=== PATIENT | female | born 1935 | race African-American/Black ===

== ENCOUNTER 2018-05-06 08:56 | Inpatient (IN) | payer OTHER ==
[~2018-05-06] VITALS: Ht 167.6 cm; Wt 79.8 kg
--- NOTE | ~2018-05-06 | H ---
[facility] [place] [address] HISTORY AND PHYSICAL Name: CINTHIA PATTON Room #: 205-P ADM IN M.R.#: [id number] Admission: 05/06/18 Attend Phys: Jaun Garcia MD Discharge: Date of : 31 Report #: [id number] THIS REPORT FOR: //name// CC: [facility] Gurinder Cao MD [facility] Jaun Alfredo MD DATE OF SERVICE: 05/06/2018 CHIEF COMPLAINT: Dizziness, weakness and nausea. HISTORY OF PRESENT ILLNESS: The patient is an 82-year-old -Gabonese female who is a resident at [facility], who began developing symptoms in the last 2 or 3 days prior to this admission. She did have an episode of emesis during the night, but denies any diarrhea or constipation issues otherwise. Her last good bowel movement was yesterday. She has not had any appetite in several days and because of concerns that she might be more seriously ill, the retirement arranged for transfer to the Hospital Emergency Room for further evaluation and treatment. While in the Emergency Room, she was found to have atrial fibrillation with rapid ventricular response. It was my understanding that this was a new finding that the patient had not had atrial fibrillation in the past, but in fact in reviewing her old records, she does have chronic atrial fibrillation. PAST MEDICAL HISTORY: Includes chronic atrial fibrillation, type 2 diabetes mellitus, hypertension, glaucoma, hyperlipidemia, gastroesophageal reflux disease, tremors, anemia and dementia. MEDICATIONS: As follows: Losartan, vitamins, amlodipine, tramadol, vitamin D3, donepezil, ranitidine, Lantus, lispro, MiraLax, metoprolol succinate, Linzess, Systane eye cleanser, primidone, latanoprost, aspirin, simvastatin. ALLERGIES: SHE HAS KNOWN ALLERGIES TO IODINE AND PENICILLIN. FAMILY HISTORY: Not available. SOCIAL HISTORY: She is a retirement resident. She has no vices at the moment. REVIEW OF SYSTEMS: She denies headache or vision changes. She denies shortness of breath. She states that she feels better now after receiving some intravenous fluids in the Emergency Room. Her dizziness is much better and she is not vomiting, but she has no appetite. She denies any diarrhea except for having some loose bowel movements [facility] [address] [place] [address] HISTORY AND PHYSICAL Name: CINTHIA PATTON Room #: 205-P [facility] IN M.R.#: [id number] Admission: 05/06/18 Attend Phys: Jaun Garcia MD Discharge: Date of : 33 Report #: [id number] gave her a laxative, feeling that might relieve some of her abdominal discomfort. The abdominal discomfort is coming and going, have no specific spot, although in the epigastric area generally. PHYSICAL EXAMINATION: VITAL SIGNS: In the Emergency Room on arrival showed the patient had a temperature of 36.6 degrees Celsius, respiratory rate of 22 with pulse oximetry of 100% on room air, pulse of 140 and blood pressure of 163/129. GENERAL: The patient is a pleasant older black female, in no distress. HEENT: Extraocular muscles are intact. Oropharynx is dry and pink. No lesions, no exudates. NECK: Supple. There is no adenopathy or thyromegaly or mass or bruit. CHEST: Lungs are fairly clear bilaterally. CARDIOVASCULAR: Reveals a tachycardic rate of around 125-130 beats per minute with slight irregularity noted. ABDOMEN: Soft. There is some mild epigastric tenderness without rebound or guarding and no other rebound or guarding or organomegaly is noted. EXTREMITIES: Reveal no cyanosis or clubbing or peripheral edema. Peripheral pulses are weak, but palpable in all 4 distal extremities. No heel wounds or ulcers on her feet. BACK: Her back looks completely benign and spine is nontender. NEUROLOGIC: She is unable to walk stable at baseline. She is able to make transfers. I believe the cause of her weakness is likely from osteoarthritis. LABORATORY DATA: EKG in the Emergency Room showed heart rate of 145 beats per minute, absence of P waves at time and other times it looks like atrial flutter. The labs show on chemistry, sodium of 145, potassium 4.1, chloride of 106, bicarbonate of 24, BUN of 29, creatinine 1.0, the anion gap is 15, the estimated GFR is 53 and the glucose was 255. Calcium was 9.5 with troponin level at 0.53, which is elevated. The hematology shows white blood cell count of 8500 with hemoglobin of 14.9, hematocrit of 47.0. The MCV is borderline low at 82.1 and the RDW is high at 15.4, suggesting active bone marrow. The platelet count is 298,000. Differential shows 79.5% segmented neutrophils, 13.5% lymphocytes, 6.7% monocytes, 0 eosinophils and 0.3% basophils. The absolute neutrophil count was 6800. Urinalysis was essentially normal with a urine specific gravity of 1.010 and trace positive on the leukocyte esterase. There was not a microscopic exam performed and glucose and protein were negative. The ER sent the urine for culture and that is pending. Chest x-ray shows bibasilar atelectasis without any other significant findings and a hiatal hernia mentioned for completeness. ASSESSMENT AND PLAN: 1. Atrial fibrillation with rapid ventricular response. The patient was started on a diltiazem drip in the ER. She is inadequately controlled at 15 per hour on my exam and I instructed the nurse to increase it to 20. I will continue intravenous fluids as I suspect she might be a little bit dehydrated, [facility] [address] [place] [address] HISTORY AND PHYSICAL Name: CINTHIA PATTON Room #: 205-P ADM IN M.R.#: [id number] Admission: 05/06/18 Attend Phys: Jaun Garcia MD Discharge: Date of : 33 Report #: [id number] although her urinalysis looked better than expected in that regard. 2. Elevated troponin is concerning and could represent myocardial infarction. We will obtain repeat troponin levels to see if this is increasing or not and we will obtain a Cardiology consult as well as an echocardiogram. She will get serial troponins and an EKG again in the morning. She is currently pain free. 3. Intractable nausea and vomiting. I suspect she has acute viral gastroenteritis and this will be self-limiting. She has not had hepatic functions yet, so I will test for these as well. Other considerations would include pancreatitis, gallbladder disease, hepatobiliary problems, etc. We will keep her on clear liquids for now and continue H2 receptor antagonist therapy. 4. Gastroesophageal reflux disease without esophagitis in the past. Continue medication as above. We will consider GI evaluation if symptoms do not resolve promptly. 5. Essential hypertension. Continue home medications except for amlodipine since we are switching to IV diltiazem. 6. Type 2 diabetes mellitus with peripheral neuropathy. We will put the patient on a sliding scale and try to continue her regularly scheduled medicines. 7. Essential tremors -- she had minimal evidence of any tremors during my exam today. We will continue same medications for now. 8. Osteoporosis. We will defer to Dr. Alfredo's recommendations. 9. Irritable bowel disease -- being treated with Linzess. 10. In reviewing the patient's medications, it appears that she was on digoxin in the past, but I am not sure if she is taking it now. I mentioned this for the sake of completeness in case the gathering worker wants to return her to that medication. <ELECTRONICALLY SIGNED> By: Jaun Garcia MD 05/06/18 1822 1653 1725 Jaun Garcia MD /nt
--- NOTE | ~2018-05-06 | EKG ---
[place] [address] [facility] [place] [address] ELECTROCARDIOGRAM REPORT Name: CINTHIA PATTON Room #: JUDD Velasco#: [id number] Admission: 05/06/18 Attend Phys: Discharge: Date of : 33 Report #: [id number] THIS REPORT FOR: //name// [facility] ED Test Date: 2018-05-06 Test Time: 09:08:44 Pat Name: CINTHIA PATTON Department: Room: Gender: F Finish Photographer: : 1935 Requested By: Enrique Cevallos Order Number: [id number] MD: Kirill Martínez Measurements Intervals [place] Rate: 145 P: 264 AK: 196 QRS: -33 QRSD: 70 T: 75 QT: 311 QTc: 483 Interpretive Statements Atrial flutter Left ventricular hypertrophy Inferior infarct, age indeterminate Poor R wave progression No previous ECG available for comparison Electronically Signed On 05-06-2018 9:51:23 INSURANCE LOSS ADJUSTER by Kirill Martínez [email or web address] <ELECTRONICALLY SIGNED> By: Kirill Martínez MD, [facility] 05/06/18 [phone] Kirill Martínez MD, FACC /EPI
--- NOTE | ~2018-05-06 | 2DMMODE ---
[facility] [address] [place] [address] 2 D/M-MODE ECHOCARDIOGRAM Name: CINTHIA PATTON Room #: 205-P ADM IN [facility]#: [id number] Admission: 05/06/18 Attend Phys: Jaun Garcia MD Discharge: Date of : 31 Date of Service: 05/07/18 1612 Report #: [id number] THIS REPORT FOR: //name// APPROVED REPORT Study performed: 05/07/2018 13:36:17 EXAM: Comprehensive 2D, Doppler, and color-flow Echocardiogram Patient Location: In-Patient Room #: 205 Status: routine BSA: 1.75 HR: 72 bpm BP: 158/78 mmHg Other Information Study Quality: Good Indications Atrial Fibrillation 2D Dimensions IVSd: 15.10 (7-11mm) LVOT Diam: 21.24 (18-24mm) LVDd: 40.42 mm PWd: 12.47 (7-11mm) LVDs: 24.22 (25-40mm) Left Atrium: 28.58 (27-40mm) Aortic Root: 31.07 mm IVC: 2.00 mm Volumes Left Atrial Volume (Systole) Single Plane 4CH: 59.97 mL Single Plane 2CH: 45.90 mL Aortic Valve AoV Peak Wilmer.: 1.22 m/s AO Peak Gr.: 5.93 mmHg LVOT Max P.00 mmHg AO Mean Gr.: 4.40 mmHg LVOT Mean P.54 mmHg AO V2 Mean: 1.04 m/s LVOT Max V: 0.99 m/s AO V2 VTI: 26.54 cm LVOT Mean V: 0.76 m/s CHRISSY (VTI): 2.77 cm2 LVOT V1 VTI: 20.77 cm CHRISSY Vmax: 2.88 cm2 AI Vmax: 2.09 m/s SV (LVOT): 73.56 mL AI [place]: 1.75 m/s2 AI PHT: 351.64 ms [facility] [place] [address] [place] [place] [address] 2 D/M-MODE ECHOCARDIOGRAM Name: CINTHIA PATTON Room #: 205-[facility] IN ..#: [id number] Admission: 05/06/18 Attend Phys: Jaun Garcia MD Discharge: Date of : 33 Date of Service: 05/07/18 1612 Report #: [id number] Mitral Valve E/A Ratio: 2.3 MV Decel. Time: 125.91 ms MV E Max Wilmer.: 0.90 m/s MV A Wilmer.: 0.40 m/s MV PHT: 36.51 ms IVRT: 103.81 ms Pulmonary Valve PV Peak Wilmer.: 0.90 m/s PV Peak Gr.: 3.23 mmHg Tricuspid Valve TR Peak Wilmer.: 2.55 m/s RAP Estimate: 3.00 mmHg TR Peak Gr.: 26.09 mmHg PA Pressure: 29.00 mmHg Left Ventricle The left ventricle is normal size. Moderate concentric left ventricular hypertrophy. The left ventricular systolic function is normal. The left ventricular ejection fraction is within the normal range. LVEF is 55-60%. Right Ventricle The right ventricle is normal size. There is normal right ventricular wall thickness. The right ventricular systolic function is normal. Atria Left atrium is at the upper limits of normal. Right atrium is at the upper limits of normal. Aortic Valve Aortic valve is thickened but has adequate excursion. Moderate aortic regurgitation. Calculated aortic valve area is 2.9 cm2 with maximum pressure gradient of 6 mmHg and mean pressure gradient of 5 mmHg. Mitral Valve Mitral valve leaflets are thickened. Trace mitral regurgitation. Tricuspid Valve The tricuspid valve is normal in structure. Trace tricuspid regurgitation. Pulmonic Valve [facility] [address] [place] [address] 2 D/M-MODE ECHOCARDIOGRAM Name: CINTHIA PATTON Room #: 205-P ADM IN .R.#: [id number] Admission: 05/06/18 Attend Phys: Jaun Garcia MD Discharge: Date of : 33 Date of Service: 05/07/18 1612 Report #: [id number] Pulmonic valve is not well visualized. Trace to mild pulmonic regurgitation. Great Vessels The aortic root is normal in size. IVC is normal in size and collapses >50% with inspiration. Pericardium Trace pericardial effusion. Small left pleural effusion. Critical Notification Critical Value: No <Conclusion> The left ventricle is normal size. LVEF is 55-60%. Left atrium is at the upper limits of normal. Right atrium is at the upper limits of normal. Aortic valve is thickened but has adequate excursion. Moderate aortic regurgitation. Calculated aortic valve area is 2.9 cm2 with maximum pressure gradient of 6 mmHg and mean pressure gradient of 5 mmHg. Mitral valve leaflets are thickened. Trace mitral regurgitation. The tricuspid valve is normal in structure. Trace tricuspid regurgitation. Pulmonic valve is not well visualized. Trace to mild pulmonic regurgitation. Trace pericardial effusion. Small left pleural effusion. <ELECTRONICALLY SIGNED> By: Krishna Cano MD 05/07/181611 11 11 Krishna Cano MD /INF
--- NOTE | ~2018-05-06 | EKG ---
[address] [address] ELECTROCARDIOGRAM REPORT Name: CINTHIA PATTON Room #: 205-P ADM IN M.R.#: [id number] Admission: 05/06/18 Attend Phys: Jaun Garcia MD Discharge: Date of : 33 Report #: [id number] THIS REPORT FOR: //name// [facility] Test Date: 2018-05-07 Test Time: 08:06:13 Pat Name: CINTHIA PATTON Department: Room: 205 P Gender: F Grades 9 12 Tutor: MIKAYLA : 1935 Requested By: Jaun Garcia Order Number: [id number] MD: Krishna Cano Measurements Intervals [place] Rate: 100 P: ND: QRS: -49 QRSD: 147 T: 117 QT: 387 QTc: 500 Interpretive Statements Atrial flutter LAD Inferior infarct age indeterminate Compared to ECG 05/06/2018 09:08:44 Early repolarization now present Electronically Signed On 05-08-2018 23:22:02 CASING WORKER by Krishna Cano [email or web address] <ELECTRONICALLY SIGNED> By: Krishna Cano MD 05/08/18 2322 0806 5 Krishna Cano MD /DAMASO
[2018-05-06 08:58] VITALS: BP 163/129
[2018-05-06 09:17] LABS: ABSOLUTE NEUTROPHILS 6.8 thou/uL (1.4-8.2); BASOPHILS 0.3 % (0.0-2.0); HEMOGLOBIN 14.9 gm/dL (12.0-15.0); LYMPHOCYTES 13.5 % (24.0-44.0); MCHC 31.7 g/dL (28.0-37.0); MCV 82.1 fL (80.0-100.0); MONOCYTES 6.7 % (1.0-8.0); PLATELET COUNT 298 thou/uL (150-400); POLYS 79.5 % (36.0-66.0); RBC 5.73 mil/uL (4.20-5.00); RDW 15.4 % (10.5-14.5); WBC 8.5 thou/uL (4.0-11.0)
[2018-05-06] MEDS ORDERED: COZAAR 25 MG TA25 M1 PO (09:18)
[2018-05-06] MEDS ORDERED: PRENATAL PO (09:18)
[2018-05-06] MEDS ORDERED: NORVASC10 MG PO (09:19)
[2018-05-06] MEDS ORDERED: VITAMIN D2000 UNIT PO (09:19)
[2018-05-06] MEDS ORDERED: TRAMADOL 50 MG50 MG PO (09:19)
[2018-05-06] MEDS ORDERED: ARICEPT 5 MG TAB5 MG PO (09:20)
[2018-05-06] MEDS ORDERED: LANTUS100 UNIT/M SUBQ (09:20)
[2018-05-06] MEDS ORDERED: RANITIDINE 150150 M1 PO (09:20)
[2018-05-06] MEDS ORDERED: HUMALOG100 UNIT/1 SUBQ (09:21)
[2018-05-06 09:22] LABS: URINE BILIRUBIN NEGATIVE (Negative); URINE BLOOD NEGATIVE (Negative); URINE CLARITY CLEAR; URINE COLOR YELLOW; URINE GLUCOSE-RANDOM* NEGATIVE (Negative); URINE KETONES NEGATIVE (Negative); URINE NITRITE-REFLEX NEGATIVE (Negative); URINE PROTEIN (DIPSTICK) NEGATIVE (Negative); URINE UROBILINOGEN 0.2 E.U./dl (0.2-1.0)
[2018-05-06] MEDS ORDERED: TOPROL XL25 MG PO (09:22)
[2018-05-06] MEDS ORDERED: MIRALAX17 GM PO (09:22)
[2018-05-06] MEDS ORDERED: LINZESS290 MCG PO (09:22)
[2018-05-06] MEDS ORDERED: SYSTANE1 EACH OPHTHALMIC (09:23)
[2018-05-06] MEDS ORDERED: MYSOLINE50 MG PO (09:23)
[2018-05-06 09:25] LABS: URINE LEUKOCYTES-REFLEX TRACE (Negative)
[2018-05-06 09:36] LABS: CALCIUM 9.5 mg/dL (8.5-10.1); TROPONIN-I 0.53 ng/mL (<0.06)
[2018-05-06 09:51] LABS: POTASSIUM 4.1 mmol/L (3.5-5.1)
[2018-05-06] MEDS ORDERED: FARXIGA5 MG PO (09:52)
[2018-05-06] MEDS ORDERED: ASPIR 8181 MG PO (09:52)
[2018-05-06] MEDS ORDERED: XALATAN2.5 ML OPHTHALMIC (09:52)
[2018-05-06] MEDS ORDERED: ZOCOR20 MG PO (09:52)
[2018-05-06 11:25] VITALS: BP 151/88
[2018-05-06 12:45] VITALS: BP 134/82
[2018-05-06 13:00] VITALS: BP 125/92
[2018-05-06 16:22] LABS: ALBUMIN 3.2 g/dL (3.4-5.0); DIRECT BILIRUBIN 0.1 mg/dL (<0.1-0.3); TOTAL BILIRUBIN 0.5 mg/dL (<0.1-1.0); TOTAL PROTEIN 6.9 g/dL (6.4-8.2)
[2018-05-06 16:24] VITALS: BP 148/72
[2018-05-06 19:40] VITALS: BP 153/87
[2018-05-07 00:10] VITALS: BP 147/72
[2018-05-07 04:43] VITALS: BP 154/61
[2018-05-07 04:51] LABS: HEMATOCRIT 45.6 % (37.0-47.0); HEMOGLOBIN 14.6 gm/dL (12.0-15.0); MCH 26.2 pg (26.0-34.0); MCV 81.7 fL (80.0-100.0); RBC 5.58 mil/uL (4.20-5.00); RDW 15.6 % (10.5-14.5)
[2018-05-07 05:13] LABS: ALBUMIN 2.6 g/dL (3.4-5.0); CALCIUM 8.6 mg/dL (8.5-10.1); CREATININE 0.8 mg/dL (0.6-1.0); POTASSIUM 3.7 mmol/L (3.5-5.1); TOTAL BILIRUBIN 0.8 mg/dL (<0.1-1.0); TOTAL PROTEIN 6.5 g/dL (6.4-8.2)
[2018-05-07 07:30] VITALS: BP 158/78
[2018-05-07 12:15] VITALS: BP 155/74
[2018-05-07 16:00] VITALS: BP 152/91
[2018-05-07 19:17] VITALS: BP 155/82
[2018-05-08 04:40] LABS: HEMATOCRIT 47.5 % (37.0-47.0); HEMOGLOBIN 15.5 gm/dL (12.0-15.0); MCH 26.9 pg (26.0-34.0); MCHC 32.6 g/dL (28.0-37.0); MCV 82.5 fL (80.0-100.0); RBC 5.76 mil/uL (4.20-5.00); RDW 15.2 % (10.5-14.5); WBC 7.3 thou/uL (4.0-11.0)
[2018-05-08 04:46] LABS: CALCIUM 8.7 mg/dL (8.5-10.1); CREATININE 0.8 mg/dL (0.6-1.0); POTASSIUM 3.2 mmol/L (3.5-5.1)
[2018-05-08 04:58] VITALS: BP 174/78
[2018-05-08 07:20] VITALS: BP 181/71
[2018-05-08 11:25] VITALS: BP 176/83
[2018-05-08 15:30] VITALS: BP 171/70
[2018-05-08 16:08] LABS: CALCIUM 8.8 mg/dL (8.5-10.1); CREATININE 0.9 mg/dL (0.6-1.0); POTASSIUM 3.5 mmol/L (3.5-5.1)
[2018-05-08 19:30] VITALS: BP 166/74
[2018-05-09 05:15] VITALS: BP 133/86
[2018-05-09 09:07] VITALS: BP 151/73
[2018-05-09 10:41] VITALS: BP 138/62
[2018-05-09] MEDS ORDERED: METOPROLOL SUCC50 MG PO (12:59)
[2018-05-09] MEDS ORDERED: ELIQUIS5 MG PO (12:59)
[2018-05-09] MEDS ORDERED: SPIRONOLACTONE25 M1 PO (13:00)
[2018-05-09] MEDS ORDERED: CARDIZEM CD240 MG PO (13:00)
[2018-05-09 15:23] VITALS: BP 121/61
[2018-05-09 19:54] VITALS: BP 158/80
[2018-05-10 05:04] VITALS: BP 172/75
[2018-05-10 07:40] VITALS: BP 148/69
[2018-05-10 11:35] VITALS: BP 135/51
[2018-05-10 15:45] VITALS: BP 136/76
[2018-05-10 19:26] VITALS: BP 142/84
[2018-05-11 04:49] VITALS: BP 148/72
[2018-05-11 07:32] VITALS: BP 137/66
[2018-05-11 11:37] VITALS: BP 132/70
[2018-05-11 14:20] VITALS: BP 145/58
[2018-05-11 19:54] VITALS: BP 147/52
[2018-05-12 03:45] VITALS: BP 169/72
[2018-05-12 11:23] VITALS: BP 145/75
[2018-05-12 15:05] VITALS: BP 135/65
[2018-05-12 19:30] VITALS: BP 133/62
[2018-05-13 05:33] VITALS: BP 164/68
[2018-05-13 08:00] VITALS: BP 180/85
[2018-05-13 12:00] VITALS: BP 136/71
[2018-05-13] MEDS ORDERED: METOPROLOL SUCC25 M1 PO (12:10)
[2018-05-13] MEDS ORDERED: CARDIZEM CD120 MG PO (12:10)
== END 2018-05-13 16:10 | DRG 392 ==
LOC: ER 08:56 → 2N 11:08 → EROBS 11:08 → 2N 12:53
PROVIDERS: Emergency Medicine; Internal Medicine
DX: K52.9 Noninfective gastroenteritis and colitis, unspecified (principal); I48.92 Unspecified atrial flutter; E44.1 Mild protein-calorie malnutrition; I48.0 Paroxysmal atrial fibrillation; I10 Essential (primary) hypertension; E11.9 Type 2 diabetes mellitus without complications; F03.90 Unspecified dementia, unspecified severity, without behavioral disturbance, psychotic disturbance, mood disturbance, and anxiety; H40.9 Unspecified glaucoma; E78.5 Hyperlipidemia, unspecified; K21.9 Gastro-esophageal reflux disease without esophagitis; E11.42 Type 2 diabetes mellitus with diabetic polyneuropathy; G25.0 Essential tremor; M81.0 Age-related osteoporosis without current pathological fracture; E87.6 Hypokalemia; Z88.0 Allergy status to penicillin; Z91.041 Radiographic dye allergy status
CPT/HCPCS: 10081

== ENCOUNTER 2018-08-05 13:02 | Inpatient (IN) | payer OTHER ==
[~2018-08-05] VITALS: Ht 167.6 cm; Wt 71.1 kg
[~2018-08-05 13:02] MED LIST: ARICEPT 5 MG TAB5 MG PO; ASPIR 8181 MG PO; CARDIZEM CD120 MG PO; CARDIZEM CD240 MG PO; COZAAR 25 MG TA25 M1 PO; ELIQUIS5 MG PO; FARXIGA5 MG PO; HUMALOG100 UNIT/1 SUBQ; LANTUS100 UNIT/M SUBQ; LINZESS290 MCG PO; METOPROLOL SUCC25 M1 PO; METOPROLOL SUCC50 MG PO; MIRALAX17 GM PO; MYSOLINE50 MG PO; NORVASC10 MG PO; PRENATAL PO; RANITIDINE 150150 M1 PO; SPIRONOLACTONE25 M1 PO; SYSTANE1 EACH OPHTHALMIC; TOPROL XL25 MG PO; TRAMADOL 50 MG50 MG PO; VITAMIN D2000 UNIT PO; XALATAN2.5 ML OPHTHALMIC; ZOCOR20 MG PO
[2018-08-05 13:03] VITALS: BP 145/70
--- NOTE | 2018-08-05 13:21 | NUR ---
PT HAD TO USE THE BATHROOM AFTER ARRIVAL. PT AMBULATED TO BATHROOM GRABBING HOLD OF FURNITURE. GAIT WAS WEAK, YET STEADY. URINE SPECIMEN OBTAINED AND SENT TO LAB. PT NOW BACK IN BED AND PLACED BACK ON GIS COORDINATOR. PT STATES THAT GETTING UP AND WALKING IS MAKING THE SOA WORSE.
[2018-08-05 13:49] LABS: ABSOLUTE NEUTROPHILS 4.9 thou/uL (1.4-8.2); BASOPHILS 0.8 % (0.0-2.0); HEMATOCRIT 43.9 % (37.0-47.0); HEMOGLOBIN 14.2 gm/dL (12.0-15.0); LYMPHOCYTES 23.2 % (24.0-44.0); MCH 26.9 pg (26.0-34.0); MCHC 32.5 g/dL (28.0-37.0); MCV 82.8 fL (80.0-100.0); MONOCYTES 10.7 % (1.0-8.0); PLATELET COUNT 253 thou/uL (150-400); POLYS 63.3 % (36.0-66.0); RDW 15.8 % (10.5-14.5); WBC 7.7 thou/uL (4.0-11.0)
--- NOTE | 2018-08-05 13:52 | EKG ---
[address] [place] [address] ELECTROCARDIOGRAM REPORT Name: CINTHIA PATTON Room #: [facility] M.R.#: [id number] ������������������ Admission: ������������������ Attend Phys: Discharge: ������������������ Date of : 31 Report #: [id number] ����������������������������������������������������������������� [id number] THIS REPORT FOR: //name// [facility] ED Test Date: 2018-08-05 Test Time: 13:27:36 Pat Name: CINTHIA PATTON Department: Room: Gender: F Trade Sales Assistant: NORA : 1935 Requested By: Capri López Order Number: [id number] MD: Krishna Cano Measurements Intervals [place] Rate: 105 P: [place]: QRS: -30 QRSD: 82 T: 17 QT: 397 QTc: 525 Interpretive Statements Atrial flutter Left axis deviation Nonspecific ST-T wave changes Compared to ECG 05/07/2018 08:06:13 no significant changes Electronically Signed On 08-05-2018 13:52:22 TENONER OPERATOR by Krishna Cano [email or web address] ��������������������������������������������� <ELECTRONICALLY SIGNED> ���������������������������������������� By: Krishna Cano MD ��������������������������������������������� 08/05/18 1352 1327 1327 Krishna Cano MD /DAMASO
[2018-08-05 14:03] LABS: APTT 32.7 Seconds (24.5-32.8); CALCIUM 9.1 mg/dL (8.5-10.1); CREATININE 1.1 mg/dL (0.6-1.0); INR 1.2; POTASSIUM 4.2 mmol/L (3.5-5.1); PROTIME 12.7 Seconds (9.3-11.4)
[2018-08-05 14:08] LABS: MAGNESIUM 1.8 mg/dL (1.8-2.4); TOTAL BILIRUBIN 0.6 mg/dL (<0.1-1.0); TOTAL PROTEIN 6.9 g/dL (6.4-8.2); TROPONIN-I 0.58 ng/mL (<0.06)
[2018-08-05 15:12] VITALS: BP 145/70
[2018-08-05 16:16] VITALS: BP 148/97
--- NOTE | 2018-08-05 16:26 | 2DMMODE ---
[facility] [address] [place] [address] 2 D/M-MODE ECHOCARDIOGRAM Name: CINTHIA PATTON Room #: 170-12 ADM IN ..#: [id number] ������������� Admission: 08/05/18 ������������� Attend Phys: Connor Gaines MD Discharge: ��� ������������� ��� Date of : 31 Date of Service: 08/05/18 1625 �� Report #: [id number] �������� ��������������������������������������������[id number] THIS REPORT FOR: //name// APPROVED REPORT Study performed: 08/05/2018 15:20:06 EXAM: Comprehensive 2D, Doppler, and color-flow Echocardiogram Patient Location: ER Room #: 12 Status: routine BSA: 1.76 HR: 90 bpm BP: 131/89 mmHg Rhythm: Atrial Flutter/Atrial Fibrillation Other Information Study Quality: Adequate Risk Factors: Cardiac Risk Factors: HTN, Hyperlipidemia, DM Indications Congestive Heart Failure Atrial Fibrillation Dyspnea Elevated Troponin 2D Dimensions IVSd: 14.71 (7-11mm) LVOT Diam: 20.00 (18-24mm) LVDd: 35.70 mm PWd: 15.37 (7-11mm) Ascending Ao: 36.54 (22-36mm) LVDs: 31.23 (25-40mm) Aortic Root: 32.49 mm LV Single Plane 4CH: 46.11 % LV Single Plane 2CH: 50.70 % Biplane EF: 47.8 % Volumes Left Atrial Volume (Systole) Single Plane 4CH: 54.45 mL Single Plane 2CH: 60.46 mL LA ESV Index: 46.00 mL/m2 Aortic Valve [facility] [address] [place] [address] 2 D/M-MODE ECHOCARDIOGRAM Name: CINTHIA PATTON Room #: 170-12 ADM IN M.R.#: [id number] ������������� Admission: 08/05/18 ������������� Attend Phys: Connor Gaines MD Discharge: ��� ������������� ��� Date of : 31 Date of Service: 08/05/18 1625 �� Report #: [id number] �������� ��������������������������������������������[id number] AoV Peak Wilmer.: 1.18 m/s AO Peak Gr.: 7.34 mmHg LVOT Max P.72 mmHg LVOT Max V: 0.66 m/s CHRISSY Vmax: 1.64 cm2 AI Vmax: 4.25 m/s AI [place]: 2.17 m/s2 AI PHT: 578.93 ms Pulmonary Valve PV Peak Wilmer.: 0.73 m/s PV Peak Gr.: 2.12 mmHg MT End Vmax: 1.92 m/s Tricuspid Valve TR Peak Wilmer.: 2.67 m/s RAP Estimate: 7.00 mmHg TR Peak Gr.: 28.51 mmHg PA Pressure: 36.00 mmHg Left Ventricle The left ventricle is normal size. There is normal LV segmental wall motion. Moderate concentric left ventricular hypertrophy. Left ventricular systolic function is mildly decreased. LVEF is 45%. This study is not technically sufficient to allow evaluation of the LV diastolic function due to atrial fibrillation. Right Ventricle The right ventricle is normal size. The right ventricular systolic function is normal. Atria Left atrium is moderately dilated. Right atrium is dilated. Aortic Valve The aortic leaflets are thickened Moderate aortic regurgitation. There is no aortic valvular stenosis. Mitral Valve There is mitral annular calcification. Moderate mitral regurgitation. No evidence of mitral valve stenosis. Tricuspid Valve The tricuspid valve is normal in structure. Trace tricuspid regurgitation. Pulmonary artery pressure is 35 mmHg. Pulmonic Valve The pulmonary valve is normal in structure. Moderate pulmonic regurgitation. [facility] [address] [place] [address] 2 D/M-MODE ECHOCARDIOGRAM Name: CINTHIA PATTON Room #: 170-12 ADM IN M.R.#: [id number] ������������� Admission: 08/05/18 ������������� Attend Phys: Connor Gaines MD Discharge: ��� ������������� ��� Date of : 31 Date of Service: 08/05/18 1625 �� Report #: [id number] �������� ��������������������������������������������[id number] Great Vessels The aortic root is normal in size. IVC is normal in size and collapses >50% with inspiration. Pericardium There is no pericardial effusion. <Conclusion> Left ventricular systolic function is mildly decreased. LVEF is 45-50%. Both atria are moderately dilated. The aortic leaflets are thickened Moderate aortic regurgitation, no stenosis There is mitral annular calcification. Moderate mitral regurgitation. Trace tricuspid regurgitation. Pulmonary artery pressure of 35 mmHg. There is no pericardial effusion. ��������������������������������������������� <ELECTRONICALLY SIGNED> ���������������������������������������� By: Kirill Martínez MD, FACC ��������������������������������������������� 08/05/18 1625 162 162 Kirill Martínez MD, FACC /INF
[2018-08-05 16:57] VITALS: BP 192/73
--- NOTE | 2018-08-05 18:45 | NUR ---
PT RECEIVED FROM THE ER AT 1650 TO RM 206 FOR CHF,SOA W/ SOME NOTED LABORED BREATHING. VS STABLE. O2 SAT 97% BUT 1L O2 APPLIED FOR PT COMFORT. SHE RECIEVED IV LASIX IN ER AND IS DIURESING WELL. TRACE PEDAL EDEMA. CHRONIC AFIB W/ RATE FLUCTUATING BUT INCREASING SOME WHEN UP. NO CHEST PAIN.
[2018-08-05 19:56] VITALS: BP 186/109
[2018-08-05 20:27] VITALS: BP 138/68
--- NOTE | 2018-08-06 04:01 | NUR ---
Carlos notified at the begnning of the shift that pt had a heart rate of 130's to 160's. Ordered to start Cardizem. Pt had inadvertantly pulled out her IV and it took several hours and >6 attempts to get a replacement in. by then her heart rate was in the 120's and I became of the opinion that her >140 heart rate was due to getting up to the commode. Cardizem gtt started at 5 mg/hr with no bolus given. SBP maintained >110.
[2018-08-06 04:07] VITALS: BP 174/114
[2018-08-06 06:00] LABS: POTASSIUM 3.8 mmol/L (3.5-5.1)
[2018-08-06 07:15] VITALS: BP 149/93
[2018-08-06 07:50] VITALS: BP 159/84
[2018-08-06 11:03] VITALS: BP 146/111
--- NOTE | 2018-08-06 12:52 | EKG ---
[place] [address] [employer] [employer] [facility] [place] [address] ELECTROCARDIOGRAM REPORT Name: CINTHIA PATTON Room #: 206-P ADM IN M.R.#: [id number] ������������������ Admission: 08/05/18 ������������������ Attend Phys: Jose Alberto Alfredo MD Discharge: ������������������ Date of : 31 Report #: [id number] ����������������������������������������������������������������� [id number] THIS REPORT FOR: //name// [facility] Test Date: 2018-08-06 Test Time: 07:25:02 Pat Name: CINTHIA PATTON Department: Room: 206 P Gender: F Auto Wash Buffer: : 1935 Requested By: Kirill Martínez Order Number: [id number] MD: Kirill Martínez Measurements Intervals [place] Rate: 92 P: NE: QRS: -38 QRSD: 82 T: 3 QT: 389 QTc: 482 Interpretive Statements Atrial flutter with variable AV conduction Probable left ventricular hypertrophy Possible inferior infarct, old Compared to ECG 08/05/2018 13:27:36 Heart rate has slowed Electronically Signed On 08-06-2018 12:51:59 OPERATIONS OFFICER AFLOAT by Kirill Martínez [email or web address] ��������������������������������������������� <ELECTRONICALLY SIGNED> ���������������������������������������� By: Kirill Martínez MD, [facility] ��������������������������������������������� 08/06/18 1251 4 Kirill Martínez MD, [facility] /EPI
[2018-08-06 15:35] VITALS: BP 145/89
[2018-08-06 19:49] VITALS: BP 150/81
[2018-08-07 00:39] VITALS: BP 137/69
--- NOTE | 2018-08-07 04:43 | NUR ---
PT REMAINS AFLUTTER ON TELE HR MOSTLY 60' TO 80'S. BP WELL CONTROLLED.PO CARDIZEM GIVEN LAST NIGHT, CARDIZEM GTT TURNED OFF AT 2200. PT RESTFUL THROUGHOUT THE NIGHT NO EVENTS, NO S/S DISTRESS.
[2018-08-07 05:55] LABS: CALCIUM 9.4 mg/dL (8.5-10.1); POTASSIUM 4.1 mmol/L (3.5-5.1)
[2018-08-07 06:05] VITALS: BP 135/65
[2018-08-07 08:06] VITALS: BP 139/92
[2018-08-07 13:22] VITALS: BP 129/68
[2018-08-07 15:55] VITALS: BP 141/49
[2018-08-07 19:51] VITALS: BP 148/58
[2018-08-08 05:46] VITALS: BP 150/63
[2018-08-08 07:20] VITALS: BP 142/84
--- NOTE | 2018-08-08 07:52 | NUR ---
PT RESTING QUIETLY IN ROOM THRU THE NOC, NO C/O PAIN, VSS, ASSESSMENT as charted, WILL CON'T TO MONITOR PER PPOC.
[2018-08-08 11:20] LABS: HEMATOCRIT 44.4 % (37.0-47.0); HEMOGLOBIN 14.5 gm/dL (12.0-15.0); MCH 27.1 pg (26.0-34.0); MCHC 32.8 g/dL (28.0-37.0); MCV 82.6 fL (80.0-100.0); RBC 5.37 mil/uL (4.20-5.00); RDW 15.8 % (10.5-14.5); WBC 6.6 thou/uL (4.0-11.0)
[2018-08-08 11:31] VITALS: BP 109/66
[2018-08-08 11:35] LABS: CREATININE 1.2 mg/dL (0.6-1.0); MAGNESIUM 1.7 mg/dL (1.8-2.4); POTASSIUM 4.9 mmol/L (3.5-5.1)
--- NOTE | 2018-08-08 14:55 | NUR ---
Met with patient she is ltc resident of [place]. Sp with admissions at [facility] station captain patient independent with adls. She use a walker for ambulation. She does not have any foot dragging but her legs can become weak and she appaears she is going to fall. On sundays she has more assistance with adls and she dresses up for rastafari, per [facility] [place]. Sp [facility] emergency contact Mr García reviewed role of casemgt and plan return once stable.
--- NOTE | 2018-08-08 15:08 | NUR ---
FAXED CLINICAL UPDATE TO CM SPOKE WITH DAX IN ADM. SHE RECEIVED UPDATE. DCP TO FOLLOW.
[2018-08-08 15:22] VITALS: BP 120/59
--- NOTE | 2018-08-08 17:56 | NUR ---
ASSESSMENT DOCUMENTED. PT ALERT AND ORIENTED. DENIED HAVING PAIN OR DISCOMFORT. INCONTINENT OF B/B. SEEN BY DR. JEAN. ORDERS NOTED. WILL CONTINUE TO MONITOR.
[2018-08-08 21:08] VITALS: BP 132/75
[2018-08-09 03:49] VITALS: BP 108/72
--- NOTE | 2018-08-09 05:49 | NUR ---
ASSUMED PT CARE AT 1900 WITH NO SIGN OF DISTRESS NOTED IN PT. PT IS ALERT AND ORIENTED. PT IS STABLE. PT IS IN AFLUTTER AND CONTROL ASSESSMENT DOCUMENTED. SCHEDULED MED ADMINISTERD TO PT. DENIES ANY FURTHER NEEDS AT THIS TIME.
[2018-08-09 07:41] VITALS: BP 115/74
[2018-08-09 11:24] VITALS: BP 126/73
--- NOTE | 2018-08-09 13:54 | NUR ---
spoke with Dr Alfredo still with increase heart rate not ready for dc to [facility]. Therapy recommmedation of post acute care. Dr Alfredo in agreement for skilled requested [facility] submit for auth for skilled care upon dc
[2018-08-09 14:19] VITALS: BP 133/61
--- NOTE | 2018-08-09 17:46 | NUR ---
ASSESSMENT DOCUMENTED. PT ALERT AND ORIENTED. DENIED HAVING PAIN OR DISCOMFORT. HAD ELEVATED HR THIS AM CARDIOLOGY AND DR JEAN AWARE. ORDERS NOTED. SON UPDATED ON PT'S PLAN OF CARE AND PROGRESS. WILL CONTINUE TO MONITOR.
[2018-08-09 20:42] VITALS: BP 133/69
[2018-08-10] MEDS ORDERED: LOPRESSOR50 PO (01:01)
[2018-08-10] MEDS ORDERED: CARDIZEM CD240 MG PO (01:02)
[2018-08-10] MEDS ORDERED: COZAAR 50 MG TA50 M1 PO (01:03)
[2018-08-10] MEDS ORDERED: LASIX 20 MG TAB20 MG PO (01:04)
--- NOTE | 2018-08-10 03:08 | NUR ---
ASSUMED PT CARE AT 1900. PT RESTING IN ROOM. A/OX4, OCAASIONALLY FORGETFUL, VITAL SIGNS STABLE, ASSESSMENT CHARTED. FALL PRECAUTIONS MAINTAINED, BED ARMED. PT ENCOURAGED TO CALL BEFORE GETTING OUT OF BED. NO CHEST PAIN/PAIN COMPLAINTS. RESTED WELL THROUGH THE NIGHT. PTOGRESSING TOWARD PLAN OF CARE. WILL CONTINUE TO MONITOR.
[2018-08-10 04:16] VITALS: BP 133/59
[2018-08-10 09:37] VITALS: BP 127/88
--- NOTE | 2018-08-10 10:45 | NUR ---
Patient is not medically stable to dc today. Updated Ofelia Triana.
[2018-08-10 11:05] VITALS: BP 109/69
[2018-08-10 14:55] VITALS: BP 135/70
--- NOTE | 2018-08-10 17:00 | NUR ---
ASSESSMENT DOCUMENTED. PT ALERT AND ORIENTED. DENIED HAVING PAIN OR DISCOMFORT. SEEN BY DR. JEAN. NO NEW ORDERS. CHECKED FREQUENTLY AND NEEDS MET. WILL CONTINUE TO MONITOR.
[2018-08-10 19:10] VITALS: BP 123/78
[2018-08-11 04:07] VITALS: BP 132/61
[2018-08-11 04:31] LABS: HEMOGLOBIN 15.5 gm/dL (12.0-15.0); MCH 26.1 pg (26.0-34.0); MCHC 31.1 g/dL (28.0-37.0); RBC 5.95 mil/uL (4.20-5.00); RDW 16.4 % (10.5-14.5); WBC 6.6 thou/uL (4.0-11.0)
[2018-08-11 04:33] VITALS: BP 106/57
--- NOTE | 2018-08-11 04:35 | NUR ---
ASSUMED PT CARE AT 1900 WITH NO SIGN OF DISTRESS NOTED IN PT. PT IS ALERT AND ORIENTED. PT IS LAYING IN BED. PT IS STABLE ON THE HEART MONITOR WITH AFIB CONTROLLED. SCHEDULED MEDS ADMINISTERED TO PT. PT TOLERATED PO INTAKE. ASSESSMENT CHARTED. NURSING POC TO CONTINUE. DENIES ANY FURTHER NEEDS AT THIS TIME.
[2018-08-11 04:43] LABS: CALCIUM 9.3 mg/dL (8.5-10.1); CREATININE 1.1 mg/dL (0.6-1.0); MAGNESIUM 2.1 mg/dL (1.8-2.4); POTASSIUM 4.9 mmol/L (3.5-5.1)
[2018-08-11 07:50] VITALS: BP 129/85
[2018-08-11 12:10] VITALS: BP 137/97
[2018-08-11 17:05] VITALS: BP 120/92
--- NOTE | 2018-08-11 18:36 | NUR ---
ASSUMED CARE OF PATIENT AT 0700. ASSESSMENTS CHARTED. PATIENT'S SON WAS AT THE BEDSIDE FOR THE ENTIRETY OF THE MORNING. PATIENT'S HEART RATE REMAINED BELOW 120 TODAY AND IN AFIB. SHE IS A STAND BY ASSIST HOWEVER SHE IS IMPULSIVE AND AMBULTATES TO THE BS PRIOR TO CALLING OUT. HER BLOOD SUGAR WAS MONITORED AND COVERED WITH INSULIN. PATIENT IS HOPING TO RETURN TO [facility] TOMORROW. WILL CONTINUE TO FOLLOW WITH POC.
[2018-08-11 19:41] VITALS: BP 133/77
--- NOTE | 2018-08-12 00:40 | NUR ---
AOX4. AFIB RATE CONTROLLED ON THE MONITOR. 1+ EDEMA ON BILATERAL LOWER EXTREMITIES. DENIES PAIN, DENIES SOA. LUNG SOUNDS CLEAR AND DIMINISHED ON THE BASES. (+)BS. MAINTAINED ON FALL PRECAUTION. URINATE TO BEDSIDE COMMODE WITH STANDBY ASSIST. IV ON THE RIGHT FOREARM INTACT AND FLUSHES WELL. PATIENT REFUSED SCD. FF UP POC.
[2018-08-12 06:25] VITALS: BP 142/63
[2018-08-12 07:40] VITALS: BP 120/95
[2018-08-12 11:20] VITALS: BP 93/56
--- NOTE | 2018-08-12 14:13 | NUR ---
Admitted for elevated heart rate, dyspnea. Seen for LOS. Hx of CHF, DM, dementia. BG 103-359, on carb controlled diet. Meds include vitamin D, vitamin, spironolactone, furosemide, low dose ss insulin. Reports pretty good appetite, nsg reports 40-50% po intake. Wt ranging 151-163. Current wt 159, UBW 152. Based on CHF and fluid retention, will add heart healthy diet restriction. Otherwise low nutritional risk.
[2018-08-12 15:30] VITALS: BP 113/65
--- NOTE | 2018-08-12 17:32 | NUR ---
Med adjustments continue for elev heart rate. [facility] has pending auth for the weekend if she is medically stable for dc back to SNF. Weekend staff to call the services account manager on duty Betsy Rios to confirm and give report. Orders will need to be faxed to [phone] and w/c van arranged through [facility] [phone] billable to the SNF. Dtr will need to be called to confirm the dc orders and time. Chart copy needs to be sent with the pt.
--- NOTE | 2018-08-12 18:09 | NUR ---
ASSUMED CARE AT SHIFT CHANGE, PT A/O X4, FLAT AFFECT, FORGETFUL AT TIMES. ASSESSMENTS PER CHART. HAD BM THIS MORNING AFTER GETTING STOOL SOFTENER ALTHOUGH FAMILY STATES PT WILL HAVE DIARRHEA IF SHE GET A STOOL SOFTENER, PT IS AGREEABLE TO TAKE IT THOUGH. PT WITH URINARY FREQUENCY TODAY AND GOT UP TO BSC WITHOUT ASSISTANCE SEVERAL TIMES. PT INSTRUCTED TO CALL IF SHE NEEDS TO GET UP TO GO. FALL PRECAUTIONS IN PLACE. LABS NOTED. HR DECREASED AFTER AM MEDS AND ADDITIONAL DOSE OF MEDS PER ORDER. PROGRESSING TOWARDS POC GOALS. WILL CONT TO MONITOR AND FOLLOW POC.
[2018-08-12 19:30] VITALS: BP 127/63
[2018-08-13 04:24] VITALS: BP 123/71
[2018-08-13 04:39] LABS: HEMATOCRIT 51.7 % (37.0-47.0); HEMOGLOBIN 16.4 gm/dL (12.0-15.0); MCH 26.4 pg (26.0-34.0); MCHC 31.7 g/dL (28.0-37.0); MCV 83.3 fL (80.0-100.0); RBC 6.2 mil/uL (4.20-5.00); RDW 15.7 % (10.5-14.5)
--- NOTE | 2018-08-13 04:48 | NUR ---
AOX4, DENIES PAIN, FLUTTER ON THE MONITOR, PULSES 2+/2+. BILATERAL LOWER EXTREMITY EDEMA 1+. MAINTAINED ON FALL PRECAUTION. ON STANDBY ASSIST X1 TO BEDSIDE COMMODE. FF UP POC.
[2018-08-13 04:56] LABS: CALCIUM 9.4 mg/dL (8.5-10.1); CREATININE 1.2 mg/dL (0.6-1.0); POTASSIUM 4.9 mmol/L (3.5-5.1)
[2018-08-13 07:50] VITALS: BP 121/74
[2018-08-13 11:50] VITALS: BP 109/54
[2018-08-13] MEDS ORDERED: ARICEPT 5 MG TAB5 MG PO (12:49)
[2018-08-13] MEDS ORDERED: CARDIZEM CD240 MG PO (12:49)
[2018-08-13] MEDS ORDERED: ZOCOR20 MG PO (12:49)
[2018-08-13] MEDS ORDERED: ELIQUIS5 MG PO (12:49)
== END 2018-08-13 16:38 | DRG 280 ==
LOC: ER 13:02 → 2N 14:29 → EROBS 14:29 → 2N 16:20
PROVIDERS: Internal Medicine; Physician Assistant; ADMIT Internal Medicine
DX: I21.A1 Myocardial infarction type 2 (principal); I50.33 Acute on chronic diastolic (congestive) heart failure; J98.11 Atelectasis; I48.92 Unspecified atrial flutter; E11.9 Type 2 diabetes mellitus without complications; I11.0 Hypertensive heart disease with heart failure; I48.0 Paroxysmal atrial fibrillation; F03.90 Unspecified dementia, unspecified severity, without behavioral disturbance, psychotic disturbance, mood disturbance, and anxiety; E78.5 Hyperlipidemia, unspecified; K21.9 Gastro-esophageal reflux disease without esophagitis; H40.9 Unspecified glaucoma; Z79.01 Long term (current) use of anticoagulants; Z79.4 Long term (current) use of insulin; Z79.82 Long term (current) use of aspirin; Z79.899 Other long term (current) drug therapy; Z88.0 Allergy status to penicillin; Z91.041 Radiographic dye allergy status; Z82.49 Family history of ischemic heart disease and other diseases of the circulatory system; Z83.3 Family history of diabetes mellitus; Z82.3 Family history of stroke; Z80.0 Family history of malignant neoplasm of digestive organs
CPT/HCPCS: 10081; 10194

== ENCOUNTER 2018-10-31 00:17 | Inpatient (IN) | payer OTHER ==
[2018-10-31] VITALS (7 sets, daily range): BP systolic 130–155; BP diastolic 83–129
[~2018-10-31] VITALS: Ht 167.6 cm; Wt 70.1 kg
[~2018-10-31 00:17] MED LIST changes: +COZAAR 50 MG TA50 M1 PO; +LASIX 20 MG TAB20 MG PO; +LOPRESSOR50 PO
[2018-10-31 01:06] LABS: ABSOLUTE NEUTROPHILS 4.6 thou/uL (1.4-8.2); BASOPHILS 0.6 % (0.0-2.0); EOSINOPHILS 1.3 % (0.0-3.0); HEMOGLOBIN 13.4 gm/dL (12.0-15.0); LYMPHOCYTES 29.1 % (24.0-44.0); MCH 26.6 pg (26.0-34.0); MCHC 31.8 g/dL (28.0-37.0); MCV 83.5 fL (80.0-100.0); MONOCYTES 8.6 % (1.0-8.0); PLATELET COUNT 255 thou/uL (150-400); POLYS 60.4 % (36.0-66.0); RBC 5.03 mil/uL (4.20-5.00); RDW 16.2 % (10.5-14.5); WBC 7.5 thou/uL (4.0-11.0)
[2018-10-31 01:16] LABS: CALCIUM 8.7 mg/dL (8.5-10.1); CREATININE 1.3 mg/dL (0.6-1.0); POTASSIUM 5.1 mmol/L (3.5-5.1)
[2018-10-31 01:21] LABS: APTT 27.2 Seconds (24.5-32.8); INR 1.2; PROTIME 12.8 Seconds (9.3-11.4)
[2018-10-31 01:26] LABS: ALBUMIN 2.9 g/dL (3.4-5.0); TOTAL BILIRUBIN 0.6 mg/dL (<0.1-1.0); TOTAL PROTEIN 6.6 g/dL (6.4-8.2); TROPONIN-I 0.46 ng/mL (<0.06)
[2018-10-31] MEDS ORDERED: SIMVASTATIN10 MG PO (02:28)
[2018-10-31] MEDS ORDERED: ZANTAC 150MG T150 MG PO (02:29)
[2018-10-31] MEDS ORDERED: HUMALOG100 UNIT/1 SUBQ (02:32)
[2018-10-31] MEDS ORDERED: LANTUS SUBQ (02:32)
--- NOTE | 2018-10-31 07:50 | NUR ---
ASSUME CARE 0345. PTSTABLE. DENIES ANY PAIN AT THIS TIME. UP TO BATHROOM WITH WALKER X 1 ASSIST. ASSESSMENT CHARTED. PROGRESSING WELL WITH POC. EDUCATION DONE ON TELE MONITOR. PT EDUCATED ON THE NEED TO FREQUENTLY CHECK ON THEM AND THE MONITOR IF THERE IS ANY ISSUE AT THE MONITOR AT THE NIRSES'S STATION. EDUCATED ON THE FAT THAT IT IS FOR PT SAFETY AND HAD PT SIGN AND VERBALIZE UNDERSTANDING. SIGNED COPY IN CHART. NPO FOR CARDIOLOGY TO SEE HER THIS AM. WILL CONTINUE TO MONITOR AND FOLLOW WITH POC
--- NOTE | 2018-10-31 08:25 | EKG ---
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 : 1935 Requested By: Ferny Krishna Order Number: [id number] MD: Mahamed Benitez Measurements Intervals [place] Rate: 42 P: 93 TX: 245 QRS: -37 QRSD: 77 T: 20 QT: 629 QTc: 526 Interpretive Statements Atrial flutter with controlled ventricular response Myocardial infarct finding still present Electronically Signed On 10-31-2018 8:24:57 CDT by Mahamed Benitez [email or web address] ��������������������������������������������� <ELECTRONICALLY SIGNED> ���������������������������������������� By: Mahamed Benitez MD ��������������������������������������������� 10/31/18 0824 0028 0028 MD MYRTLE Au
--- NOTE | 2018-10-31 16:41 | NUR ---
ASSUMED CARE OF PT AT SHIFT CHANGE. ASSESSMENTS CHARTED. MEDS GIVEN PER AUG. PT ALERT AND ORIENTED, VSS, NO C/O PAIN, DENIES CP, SOB. PT UP X1 WITH WALKER, TOELRATING WELL. FAMILY AT BEDSIDE THROUGHOUT SHIFT. PT CALLS APPROPRIATELY WITH NEEDS, FALL PRECAUTIONS IN PLACE THROUGHOUT SHIFT. PT DENIES CONCERNS AT THIS TIME. PLAN IS FOR PT TO HAVE STRESS TEST IN AM. WILL CONTINUE TO MONITOR AND FOLLOW POC.
[2018-11-01 00:18] VITALS: BP 145/95
[2018-11-01 03:59] LABS: HEMATOCRIT 39.5 % (37.0-47.0); HEMOGLOBIN 12.6 gm/dL (12.0-15.0); MCH 26.3 pg (26.0-34.0); MCHC 31.9 g/dL (28.0-37.0); MCV 82.5 fL (80.0-100.0); RBC 4.79 mil/uL (4.20-5.00); RDW 15.5 % (10.5-14.5); WBC 5.9 thou/uL (4.0-11.0)
[2018-11-01 04:00] VITALS: BP 128/92
[2018-11-01 04:17] LABS: ALBUMIN 2.7 g/dL (3.4-5.0); CALCIUM 8.6 mg/dL (8.5-10.1); MAGNESIUM 1.8 mg/dL (1.8-2.4); POTASSIUM 4.1 mmol/L (3.5-5.1); TOTAL BILIRUBIN 0.5 mg/dL (<0.1-1.0); TOTAL PROTEIN 5.7 g/dL (6.4-8.2)
--- NOTE | 2018-11-01 05:17 | NUR ---
ASSUMED PT CARE AT 1900. VSS. PT A&0X4. WAS ON 2L NC AND SATING FINE. SOME EDEMA NOTED IN HER BILAT LEGS. NO COMPLAINTS OF PAIN. SHE GOT UP TO THE BEDSIDE COMMODE WITH A STAND BY ASSIST MUTIPLE TIMES DURING THE NIGHT TO URINATE. HER HR WAS ELEVATED AND SUSTAINED IN THE 120s FOR THE FIRST HALF OF THE SHIFT. DR ASHFORD NOTIFIED; DEFERED TO CARDIOLOGY, DR PARHAM NOTIFIED, NO NEW ORDERS RECIEVED. PT'S HR CAME DOWN TO LESS THAN 110s THIS AM. PT IS STABLE, STEADY, TO HAVE A STRESS TEST THIS AM. WILL CONTINUE TO MONITOR PER POC.
[2018-11-01 08:00] VITALS: BP 151/103
[2018-11-01 15:12] VITALS: BP 155/107
--- NOTE | 2018-11-01 16:22 | NUR ---
patient admits from [facility] ltc with SOA. Patient A/Ox4. Plan to return to [facility] once stable. Sp with dtr Finn [phone] and updated on role of casemgt.
--- NOTE | 2018-11-01 19:57 | NUR ---
AAXO3 VERY PLEASANT AND COOPERTIVE. STRESS TEST COMPLETED. VOIDS PER COMMODE. DENIES PAIN. STARTED CARDIAZEM DRIP FOR TACHYCARDIA. O2 2L. GOOD APPETITE COVERED HIGH BLOOD SUGARS WITH SLIDING SCALE. FAMILY AT BEDSIDE.
[2018-11-01 20:20] VITALS: BP 133/92
[2018-11-02 00:28] VITALS: BP 130/57
--- NOTE | 2018-11-02 03:48 | NUR ---
ASSESSMENT DOCUMENTED.PT BEEN RESTING IN NO ACUTE DISTRESS.A/OX3 W/FORGETFULNESS.VSS.O2 AT 2LITERS PNC,SATS ADEQUATE.TOLERATING ACTIVITIES THOUGH NOTED DYSPNEA WITH EXERTION.SBA TO BSC,VOIDING FREQUENTLY.ON CARDIZEM DRIP TITRATED TO 5MG/HR,ON MONITOR ATRIAL FLUTTER WITH HR IN 80S WITH OCCASIONAL TACHYCARDIA EVENTS ESPECIALLY WITH ACTIVITIES.POC IS TO CONTINUE TO DIURESE AND MONITOR RHYTHM.PT WILL RETURN TO NURSING FACILITY WHEN STABLE.
[2018-11-02 04:50] VITALS: BP 149/72
[2018-11-02 08:15] VITALS: BP 156/88
--- NOTE | 2018-11-02 09:24 | EKG ---
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 : 1935 Requested By: Jaun Garcia Order Number: [id number] MD: Luis Engle Measurements Intervals [place] Rate: 128 P: 215 CO: 220 QRS: -31 QRSD: 68 T: 190 QT: 242 QTc: 353 Interpretive Statements Atrial flutter with 2:1 conduction Inferior infarct, old Poor R-wave progression Nonspecific ST segment abnormalities Compared to ECG 10/31/2018 00:28:16 Atrial flutter still present Myocardial infarct finding still present Electronically Signed On 11-02-2018 9:24:22 CDT by Luis Engle [email or web address] ��������������������������������������������� <ELECTRONICALLY SIGNED> ���������������������������������������� By: Luis Engle MD ��������������������������������������������� 11/02/1824 6 6 Luis Engle MD /[facility]
[2018-11-02 11:00] VITALS: BP 125/49
[2018-11-02 11:59] VITALS: BP 125/49
--- NOTE | 2018-11-02 14:19 | H ---
[facility] [address] [place] [address] HISTORY AND PHYSICAL Name: CINTHIA PATTON Room #: 216-P ADM IN M.R.#: [id number] Admission: 10/31/18 ������������������ Attend Phys: Jose Alberto Alfredo MD Discharge: ������������������ Date of : 33 Report #: [id number] THIS REPORT FOR: //name// CC: [facility] Krishna Alfredo MD DATE OF SERVICE: 10/31/2018 CHIEF COMPLAINT: Right arm pain and low blood pressure and slow heart rate. HISTORY OF PRESENT ILLNESS: The patient is an 83-year-old -Burmese female who currently resides at [facility] and called the nursing staff for assistance this morning after she developed arm pain and shortness of breath. The arm pain was strictly limited to the right side. It began while she was sitting on the commode. She went to bed and waited for a short while, but it did not feel any better and this prompted her to seek further assistance. Per Emergency Room report, oxygen was started at the facility, and the patient reports, at the time of my examination, that the right arm discomfort is gone and her shortness of breath is much better. PAST MEDICAL HISTORY: The patient was hospitalized for acute on chronic diastolic congestive heart failure in July at [facility] of this year. She also has a history of hypertension, type 2 diabetes mellitus, chronic atrial fibrillation, hyperlipidemia, glaucoma, gastroesophageal reflux disease, seizure disorder (versus tremors-see medication list below), anemia. Dementia is listed in her past medical and surgical history as well. MEDICATIONS: List from [facility] reveals the following: Diltiazem extended release 240 mg by mouth twice a day, Simvastatin 10 mg by mouth nightly, vitamin by mouth daily, tramadol 50 mg by mouth twice daily p.r.n. pain, vitamin D3 2000 units by mouth daily, ranitidine 150 mg by mouth nightly, MiraLax 17 grams in beverage of choice by mouth daily p.r.n. constipation, Linzess 290 mcg by mouth daily, Systane eyedrops 1 drop both eyes every day for dry eyes, primidone 50 mg by mouth daily (unclear whether this is for seizures or tremors or both), latanoprost eyedrops 1 drop in each eye at bedtime nightly, spironolactone 25 mg by mouth every morning, Eliquis 5 mg by mouth twice daily, Humalog 3 units by mouth before meals, Lantus 12 units subQ nightly, metoprolol tartrate 50 mg by mouth twice daily, losartan 50 mg by mouth daily, furosemide 40 mg by mouth every morning, donepezil 10 mg by mouth nightly, and senna 8.6 mg by mouth daily. ALLERGIES: Please note that the patient has recorded allergies of PENICILLIN, IODINE and later also revealed that she is intolerant of MORPHINE. [address] [place] [address] HISTORY AND PHYSICAL Name: CINTHIA PATTON Room #: 216-P [facility] IN M.R.#: [id number] Admission: 10/31/18 ������������������ Attend Phys: Jose Alberto Alfredo MD Discharge: ������������������ Date of : 33 Report #: [id number] Please note that upon questioning, the patient denies a history of myocardial infarction. 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 The Emergency Room suggests in their note that there have been 2 known myocardial infarctions. I suspect this is a misunderstanding of the term myocardial infarction "type 2" (this suggests a supply-demand ischemic picture rather than coronary artery disease problem solely). The patient also has a history of hyperlipidemia, irritable bowel syndrome, vitamin B12 deficiency, vitamin D deficiency and primary generalized osteoarthritis, especially affecting the left shoulder. FAMILY HISTORY: Includes stroke, diabetes, pancreatic cancer, and known coronary artery disease. SOCIAL HISTORY: The patient is . She lives in a senior living. She is a lifelong nonsmoker and has no history of abusing any recreational drugs or alcohol. PAST SURGICAL HISTORY: Includes cataract surgery, on both sides; hysterectomy, left total knee replacement. Her baseline weight is 155 pounds. REVIEW OF SYSTEMS: The patient states that she was in her usual state of health until she developed her symptoms while sitting on the commode last night. She denies any headaches or change in vision, no difficulty with hearing. No problems with swallowing. No loss of appetite or nausea or vomiting or diarrhea or change in her baseline constipation issues. Her shortness of breath is currently resolved at 2 liters per nasal cannula per minute. She denies chest pain. She does admit to pain in her left shoulder, chronically. This has unchanged. The right upper extremity pain that she had at the time of admission has completely resolved, but she states that it intermittently returns to bother her for short periods. She has noticed increased swelling in both feet recently. This also happened when she had congestive heart failure in July of this year. PHYSICAL EXAMINATION: VITAL SIGNS: At the time of admission in the Emergency Room, she had a pulse of 42, confirmed by EKG; respirations are 15 per minute, blood pressure of 155/129 and a pulse oximetry of 95%. Her weight on arrival was 148 pounds. GENERAL: This is a well-developed, well-nourished, intelligent, elderly -Burmese female, in no distress. HEENT: The extraocular muscles are intact. Oropharynx is moist and pink. There are no lesions or exudates. Sinuses are nontender. NECK: Shows no adenopathy or thyromegaly. She has no auscultable bruits on either side. Range of motion is good. LUNGS: Fairly clear bilaterally except for a soft bibasilar crackles. CARDIOVASCULAR: Reveals an irregularly irregular tachycardia with a rate of [facility] [address] [place] [address] HISTORY AND PHYSICAL Name: CINTHIA PATTON [facility] .R.[facility] [id number] Admission: 10/31/18 ������������������ Attend Phys: Jose Alberto Alfredo MD Discharge: ������������������ Date of : 33 Report #: [id number] about 110-120 beats per minute at the time of my exam. ABDOMEN: Soft. Bowel sounds are present, no visceromegaly or masses are noted. No hernias noted. The patient is wearing diapers because of continence issues. The back is without tenderness or wounds. EXTREMITIES: There is trace to 1+ bipedal edema, with pitting. She has some degenerative changes. Left knee replacement surgery scar is noted. Peripheral pulses are palpable, but weak in the lower extremities and fairly brisk in the upper extremities. MENTAL STATUS: The patient is alert. She is oriented to person and place and time. No hallucinations or delusions and her affect is somewhat blunted. NEUROLOGIC: Cranial nerves 2-12 are intact. Cranial cerebellar exam was not repeated today. The patient does not have any focal motor deficits or sensory deficits on a general gross exam. LABORATORY DATA: EKG in the Emergency Room showed a heart rate of 42 beats per minute with atrial fibrillation. The most recent telemetry in the CCU showed atrial flutter. Her rate was 110 beats per minute, approximately. Admit labs showed a sodium 138, potassium 5.1, chloride 103, bicarbonate 24, BUN 21, and creatinine 1.3. The anion gap is 11. Glucose is nonfasting and 277 and the estimated GFR is 47, calcium is 8.7, and albumin is 2.9. TSH was obtained in the Emergency Room, which was 3.001 and normal. Total bilirubin is 0.6, AST of 68 and ALT of 90. She has elevated liver functions. Alkaline phosphatase, however, was normal at 112, magnesium level was normal at 2.0. NT-proBNP was 11,125, significantly elevated. Protime was 12.8 seconds with an INR of 1.2 and the activated PTT was 27.2 and normal. CBC showed a normal white blood cell count of 7500, hemoglobin of 13.4, hematocrit of 42.0, normal red blood cell indices with a slightly elevated RDW at 16.2, and a platelet count of 255,000. The differential looked fairly normal. Chest x-ray done in the Emergency Room showed cardiomegaly, vascular redistribution with Paige lines and an elevated right hemidiaphragm, which was not significantly changed from July of this year. The patient was given an aspirin in the Emergency Room and a Cardiology consult was obtained. ASSESSMENT AND PLAN: 1. Unstable angina with possible acute or early myocardial infarction as evidenced by slightly elevated troponin levels in the 0.4 range x 2. I have discussed the case briefly with Dr. Cano. To my knowledge, the patient has not had a cardiac stress test either in the [facility] or here at the hospital, and we have no history of cardiac catheterization. She has had echocardiogram in July of this year and late last year as well. Given her strong family history for coronary artery disease and her multiple risk factors of high blood pressure, diabetes and history of congestive heart failure, Dr. Cano suggested a nuclear stress test and I have entered in the computer for tomorrow morning. I do think the patient should be on an additional aspirin daily at [facility] [address] [place] [address] HISTORY AND PHYSICAL Name: CINTHIA PATTON Room #: 216-P ADM IN M.R.#: [id number] Admission: 10/31/18 ������������������ Attend Phys: Jose Alberto Alfredo MD Discharge: ������������������ Date of : 33 Report #: [id number] this time and I have continued all of her other medications except as discussed below. 2. Severe bradycardia as well as intermittent tachycardia in the setting of chronic atrial fibrillation-there was genuine concern during the July admission and again now that this patient may require pacemaker placement in order to allow aggressive management of the tachycardia problem. At this point; however, she has been taken off of metoprolol and diltiazem and donepezil because of her labile rhythm disturbances. She will get an electrocardiogram again tomorrow morning and already has a series of 2 more troponin levels ordered. 3. Hypertension-we will treat more aggressively once we know about her cardiac status. 4. Hyperlipidemia, on appropriate therapy at this time. 5. Glaucoma-she is on appropriate therapy at this time. 6. Type 2 diabetes mellitus. We will continue insulin as from the senior living, but with sliding scale. 7. History of dementia-she may need additional therapy, but I would like to defer on using Aricept at this time until her cardiac status is more fully clarified. 8. Osteoarthritis, left shoulder. 9. Constipation, predominant irritable bowel syndrome, on Linzess and p.r.n.'s. 10. Gastroesophageal reflux disease, currently asymptomatic, on H2 receptor antagonist therapy. 11. Tremor versus seizure disorder-I only discussed this further with the patient and her family. I believe the tremor is the more likely issue, but we will continue the primidone at present. She is on a very low dose. 12. History of vitamin B12 deficiency and vitamin D deficiency. 13. History of aortic valve regurgitation, moderate. ��������������������������������������������� <ELECTRONICALLY SIGNED> ���������������������������������������� By: Jaun Garcia MD ��������������������������������������������� 11/02/18 1419 1416 1508 Jaun Garcia MD /nt
--- NOTE | 2018-11-02 16:09 | NUR ---
ASSESSMENT CHARTED - MEDS PER MAR - NO CO'S OF PAIN OR NAUSEA. EMEKA DIET AND FLUIDS. UP TO THE BEDSIDE COMMODE FREQUENTLY - VOIDS SMALL AMOUNT OF URINE - PT ON LASIX BID. CARDIZEM GIVEN PO THIS AM AND IV CARDIZEM D/C'S ORDERED. STARTED ON TROPROLOL 12.5MGS. HEART RATE AT REST IS IS IN THE 80-90'S, WITH ACTIVITY IT JUMPS UP TO THE 130-140'S DR AWARE. TRUONG CHARTED COVERED PER SSI - NO CO'S AT THE PRESENT TIME.
[2018-11-02 19:34] VITALS: BP 135/80
[2018-11-03 04:48] VITALS: BP 101/77
--- NOTE | 2018-11-03 05:13 | NUR ---
ASSESSMENT DOCUMENTED.PT BEEN RESTING IN NO ACUTE DISTRESS.DENIES ANY PAIN OR ANY DISCOMFORT.VSS.PT CONTINUES TO BE TACHYCARDIAC WITH TOILETING AND SLIGHT ACTIVITIES,HR BETWEEN 90S-120S MOST OF THE NOC.DENIES CHEST PAIN.ON WITH ADEQUATE SATS.POC IS TO HAVE PACEMAKER PLACED ON WEDNESDAY.WILL CONT TO MONITOR PER POC.
[2018-11-03 08:05] VITALS: BP 122/74
[2018-11-03 09:50] LABS: HEMATOCRIT 44.2 % (37.0-47.0); HEMOGLOBIN 14.3 gm/dL (12.0-15.0); MCH 26.7 pg (26.0-34.0); MCHC 32.4 g/dL (28.0-37.0); MCV 82.5 fL (80.0-100.0); PLATELET COUNT 222 thou/uL (150-400); RBC 5.35 mil/uL (4.20-5.00); RDW 15.4 % (10.5-14.5); WBC 6.5 thou/uL (4.0-11.0)
[2018-11-03 10:07] LABS: ALBUMIN 2.8 g/dL (3.4-5.0); CALCIUM 9.1 mg/dL (8.5-10.1); CREATININE 1.3 mg/dL (0.6-1.0); POTASSIUM 4.1 mmol/L (3.5-5.1); TOTAL BILIRUBIN 0.9 mg/dL (<0.1-1.0); TOTAL PROTEIN 6.8 g/dL (6.4-8.2)
[2018-11-03 10:32] LABS: ABSOLUTE NEUTROPHILS 3.6 thou/uL (1.4-8.2); PLATELET ESTIMATE NORMAL
[2018-11-03 12:05] VITALS: BP 120/89
--- NOTE | 2018-11-03 13:53 | NUR ---
Pt to have pace maker placement tomorrow. [facility] g[facility]. Following to coordinate pt's return to medical terminologist care at [facility] once medically ready for dc.
--- NOTE | 2018-11-03 14:58 | NUR ---
FAXED CLINICAL UPDATE TO [facility] SPOKE WITH ANJANA IN ADM SHE RECEIVED UPDATE. DCP TO FOLLOW.
[2018-11-03 15:25] VITALS: BP 127/71
[2018-11-03 19:36] VITALS: BP 156/85
[2018-11-04] VITALS (8 sets, daily range): BP systolic 87–155; BP diastolic 52–108
--- NOTE | 2018-11-04 05:09 | NUR ---
ASSUMED PT CARE AT 1900. VSS. PT A&0X4. ASSESSMENTS AND MEDS GIVEN ARE DOCUMENTED. PT SLEPT WELL ALL NIGHT, HIBECLEANS SHOWER LAST NIGHT AND THIS AM. PT HAS BEEN NPO SINCE MIDNIGHT. NO COMPLAINTS OF PAIN, PT HAS BEEN TACHYCARDIC THE WHOLE NIGHT, MAINLY IN THE 120s. REMAINS ASSYMPTOMATIC. PT IS STABLE, WILL NEED PACEMAKER EDUCATION POST IMPLANTATION. CONSENT SIGNED AND IN THE CHART. WILL CONTINUE TO MONITOR PER POC.
--- NOTE | 2018-11-04 10:34 | NUR ---
IF PT SHOULD DC BACK TO [facility] FAX DC ORDERS/SUMMARY TO [phone] AND CALL REPORT TO [phone] AND THEY WILL ALSO ARRANGE TRANSPORTATION.
--- NOTE | 2018-11-04 18:36 | NUR ---
ASSESSMENT DOCUMENTED. PT ALERT AND ORIENTED WITH FORGETFULNESS. HAD PACEMAKER PLACEMENT THIS AM. PACEMAKER INCISION COVERED WITH GAUZE AND CLEAR TAPE. IMMOBILIZER IN PLACE. VSS. DENIES HAVING PAIN OR DISCOMFORT. WILL CONTINUE TO MONITOR.
[2018-11-05 01:10] VITALS: BP 138/90
--- NOTE | 2018-11-05 03:12 | NUR ---
ASSUMED PT CARE AT 1900. VSS. PT A&0X4. PT ON AMIO DRIP INITIALLY AT 33MLS/HR, BUT WAS CHANGED TO 16.7ML/HR AT 2029. PT DENIES PAIN OR DISCOMFORT. SHE RESTED WELL ALL NIGHT, EXTERNAL CATHERTER STILL IN PLACE WELL ARM IMMOBILIZER. L CHEST DRESSING REMAINS CDI, PT STILL ON BEDREST. HR IS IN THE LOW 110s. PT IS STABLE, WILL CONTINUE TO MONITOR PER POC.
[2018-11-05 05:24] VITALS: BP 145/97
[2018-11-05 07:50] VITALS: BP 158/91
[2018-11-05 11:30] VITALS: BP 121/95
[2018-11-05 16:00] VITALS: BP 129/66
--- NOTE | 2018-11-05 18:20 | NUR ---
ASSESSMENT CHARTED. PT ALERT AND ORIENTED WITH FORGETFULNESS. PACEMAKER INCISION COVERED WITH GAUZE AND CLEAR TAPE. DENIED HAVING PAIN OR DISCOMFORT. FALL PRECAUTION IN PLACE. WILL CONTINUE TO MONITOR.
[2018-11-05 21:03] VITALS: BP 154/105
--- NOTE | 2018-11-06 03:09 | NUR ---
ASSESSMENT DOCUMENTED.PT BEEN RESTING IN NO ACUTE DISTRESS.A/OX4.VSS.IMMOBILIZER IN PLACE.PACEMAKER INCISIONS,WITH DRESSING CDI.RA W/O RESP DISTRESS.PT DENIES PAIN.UP TO BSC WITH ASSIST OF 1.ON MONITOR PT STILLS RUNS TACHY 100-120S.POC IS TO CONT TO MONITOR HR WITH POSSIBLE DISCHARGE WEDNESDAY.WILL CONT TO MONITOR PER POC.
[2018-11-06 04:57] VITALS: BP 131/94
[2018-11-06 05:43] LABS: HEMATOCRIT 45.1 % (37.0-47.0); HEMOGLOBIN 14.5 gm/dL (12.0-15.0); MCH 26.5 pg (26.0-34.0); MCHC 32.2 g/dL (28.0-37.0); MCV 82.4 fL (80.0-100.0); RBC 5.47 mil/uL (4.20-5.00); RDW 15.5 % (10.5-14.5); WBC 7.4 thou/uL (4.0-11.0)
[2018-11-06 06:02] LABS: CREATININE 1.3 mg/dL (0.6-1.0); POTASSIUM 4.3 mmol/L (3.5-5.1)
[2018-11-06 07:45] VITALS: BP 118/91
[2018-11-06 11:40] VITALS: BP 115/82
[2018-11-06 15:30] VITALS: BP 123/57
--- NOTE | 2018-11-06 17:44 | NUR ---
PT ALERT AND ORIENTED WITH FORGETFULNESS. DENIED HAVING PAIN OR DISCOMFORT. UP IN THE CHAIR THIS AM. PROGRESSING WELL TOWARD DISCHARGE GOAL.
[2018-11-06 19:11] VITALS: BP 119/75
[2018-11-06 23:34] VITALS: BP 119/56
--- NOTE | 2018-11-07 03:42 | NUR ---
ASSESSMENT DOCUMENTED.PT BEEN RESTING IN NO ACUTE DISTRESS.A/OX4.VSS.UP WITH ASSIST TO BSC.IMMOBILIZER IN PLACE.LEFT CHEST PACEMAKER INCISIONS IN PLACE,CDI.ON MONITOR AFLUTTER WITH OCCASSIONAL V-PACED BEATS,HR CONTROLLED IN 70S.PT DENIES PAIN.POSSIBLE DISCHARGE TODAY TO [facility].
[2018-11-07 04:33] VITALS: BP 126/59
[2018-11-07 07:40] VITALS: BP 110/69
[2018-11-07 11:07] VITALS: BP 106/65
[2018-11-07 16:05] VITALS: BP 101/64
--- NOTE | 2018-11-07 17:29 | NUR ---
ASSESSMENT CHARTED. PT ALERT AND ORIENTED WITH FORGETFULNESS. VSS. DENIED HAVING PAIN OR DISCOMFORT. UP IN THE CHAIR THIS AM. NO CONCERNS. WILL CONTINUE TO MONITOR.
[2018-11-07 19:40] VITALS: BP 107/75
[2018-11-08 03:44] VITALS: BP 120/78
--- NOTE | 2018-11-08 03:52 | NUR ---
ASSESSMENT DOCUMENTED.PT RESTING IN NO ACUTE DISTRESS.A/OX4.VSS.LEFT CHEST PACEMAKER INCISIONS INTACT,DRESSING CDI.IMMOBILZER IN PLACE.UP WITH ASSIST TO BSC.POSSIBLE DISCHARGE TODAY.WILL CONT TO MONITOR PER POC.
[2018-11-08 04:13] LABS: HEMATOCRIT 43.9 % (37.0-47.0); HEMOGLOBIN 14.3 gm/dL (12.0-15.0); MCHC 32.6 g/dL (28.0-37.0); MCV 82.9 fL (80.0-100.0); RBC 5.29 mil/uL (4.20-5.00); RDW 15.1 % (10.5-14.5)
[2018-11-08 04:19] LABS: ALBUMIN 2.4 g/dL (3.4-5.0); CALCIUM 8.9 mg/dL (8.5-10.1); CREATININE 1.5 mg/dL (0.6-1.0); POTASSIUM 4.3 mmol/L (3.5-5.1); TOTAL BILIRUBIN 0.5 mg/dL (<0.1-1.0); TOTAL PROTEIN 6.8 g/dL (6.4-8.2)
[2018-11-08 07:55] VITALS: BP 128/71
--- NOTE | 2018-11-08 10:55 | NUR ---
FAXED CLINICAL UPDATE TO [facility] SPOKE WITH ANJANA IN ADM SHE RECEIVED UPDATE. DCP TO FOLLOW.
[2018-11-08 11:12] VITALS: BP 120/79
--- NOTE | 2018-11-08 12:56 | CATHLAB ---
[facility] [address] [place] [address] INVASIVE PROCEDURE REPORT Name: CINTHIA PATTON Room #: 216-P [facility] IN ..#: [id number] ������������� Admission: 10/31/18 ������������� Attend Phys: Jose Alberto Alfredo MD Discharge: ��� ������������� ��� Date of : 31 Date of Service: 11/08/18 1256 �� Report #: [id number] �������� ��������������������������������������������[id number] THIS REPORT FOR: //name// ADDENDUM APPROVED REPORT Study performed: 11/04/2018 12:20:31 Patient Status: In-Patient Room #: Event Personnel: Krishna Cano Toolmaker Helper, Zohaib Gibson RN, Cristy Medina RN, Renetta Silva, Gianni Hall RTR Scrub Exam: Insertion of Single Chamber Permanent Pacemaker, provision of conscious sedation Indications: sick sinus syndrome tachybradycardia syndrome and symptomatic bradycardia The patient is a 83 year-old female with a history of . Conscious Sedation Start time: 13:32 End Time: 14:24 Versed 2 mg Implanted Devices: V Lead Model number 2088TC-52 Serial number [id number] Generator Model number [id number] Serial number [id number] Procedure The patient underwent informed consent. We discussed the details of the procedure including the risks, which include, but not limited to bleeding, infection, vascular damage, cardiac perforation, and pneumothorax. She understood these risks and was willing to proceed. As such, she was brought to the EP/Cardiac Catheterization laboratory in a fasting and sedated state and prepped and draped in a The patient underwent conscious sedation, with no related complications. The patient was brought to the EP/Cardiac Catheterization laboratory and the left chest and shoulder were prepped and draped in a sterile manner. During this case, Fluoroscopy and no contrast were used for imaging. The left subclavian region was infiltrated with 2% Lidocaine subcutaneous anesthesia. A transverse incision was made in the left upper chest cavity. The subcutaneous pocket was formed via blunt dissection. Percutaneous venous access was achieved and an introducer sheath was inserted into [facility] [address] [place] [address] INVASIVE PROCEDURE REPORT Name: CINTHIA PATTON Room #: 216-P [facility] IN ..#: [id number] ������������� Admission: 10/31/18 ������������� Attend Phys: Jose Alberto Alfredo MD Discharge: ��� ������������� ��� Date of : 31 Date of Service: 11/08/18 1256 �� Report #: [id number] �������� ��������������������������������������������[id number] the left Subclavian vein. Sheaths were positions using the modified Seldinger technique Through the introducer sheaths the ventricular lead wire was positioned in the right atrial appendage and right ventricular apex respectively. Capturing and sensing thresholds were verified. Electrode Parameters R Wave: 12 mv Ventricular Threshold: 0.75@.4ms Ventricular Resistance: 650 ohms Capture 0.75V @ 0.4ms Sense 12.0mV Lead Impedance 650omhs Single Chamber The ventricular lead was attached to the appropriate receptacle on the pulse generator and set screws firmly tightened to insure adequate contact and stability. Complications The patient tolerated the procedure well and there were no complications associated with the procedure. Findings Estimated Blood Loss: 10cc Conclusion 1. Successful insertion of a [employer] single lead VVI pacer Recommendations 1. Routine post pacemaker protocol ��������������������������������������������� <ELECTRONICALLY SIGNED> ���������������������������������������� By: Krishna Cano MD ��������������������������������������������� 11/08/18 1256 1256 1256 Krishna Cano MD /INF
[2018-11-08 15:40] VITALS: BP 119/65; BP 19/65
--- NOTE | 2018-11-08 18:51 | NUR ---
ASSUMED CARE OF PT AT SHIFT CHANGE. ASSESSMENTS CHARTED. MEDS GIVEN PER MAR. PT ALERT AND ORIENTED, VSS, DENIES PAIN. BLOOD SUGARS MANAGED PER SSI. APPETITE ADEQUATE. PT UP X1 ASSIST, TOLERATING WELL. PT HAD BM THIS SHIFT. FAMILY AT BEDSIDE THROUGHOUT SHIFT. PT DENIES CONCERNS AT THIS TIME. PT CURRENTLY RESTING COMFORTABLY IN BED. WILL CONTINUE TO MONITOR.
[2018-11-08 19:37] VITALS: BP 133/92
--- NOTE | 2018-11-09 04:40 | NUR ---
RECEIVED PT'S CARE AT 1920; PT. ON BED; AOX4; NO C/O PAIN; DURING ASSESSMENT PT. ST. HAVING NOT PAIN; AOX4; EDUCATED ABOUT THE IMPORTANCE OF TURNING FROM SIDE TO SIDE; ST. UNDERSTANDING; ST. ABLE TO TURN FROM SIDE TO SIDE BY HERSELF; EDUCATED ABOUT FALL PREVENTION; ST. UNDERSTANDING; CALLS APROPIATELY; EDUCATED ABOUT PACEMAKER PRECAUTIONS; NO PULLING; NO PUSHING; ST. UNDERSTANDING; ABLE TO REST DURING THE NIGHT; ASSESSMENT CHARGED; FOLLOWING POC; WILL KEEP MONITORING; WILL PASS ON REPORT.
[2018-11-09 05:37] VITALS: BP 120/72
[2018-11-09 07:17] VITALS: BP 121/76
--- NOTE | 2018-11-09 09:25 | NUR ---
Assess for length of stay. Admit with SOA, chest pain, s/p pacemaker. Visit during breakfast and pt had eaten about 75% of meal. Usual wts ~155 lb. BG 184-352 with hx dm so will add carb controlled diet. Low nutrition risk
[2018-11-09 11:21] VITALS: BP 106/71
--- NOTE | 2018-11-09 14:04 | NUR ---
therapy recommends post acute care. requested [place] begin auth process.
[2018-11-09 15:09] VITALS: BP 99/54
--- NOTE | 2018-11-09 18:17 | NUR ---
PT ALERT AND ORIENTED TIMES FOUR. VSS, 98%RA, ST ON TELE. PT DENIES PAIN/SOA. PT TOLERATES MEDS AND MEALS. PT UP SITTING IN THE CHAIR FOR MOST OF THE DAY. PT SON AT BEDSIDE THIS AFTERNOON. PT SLOWLY PROGRESSING TOWRADS POC GOALS.
[2018-11-09 19:37] VITALS: BP 119/85
--- NOTE | 2018-11-10 05:05 | NUR ---
RECEIVED PT'S CARE AT 1930; PT. ON BED; AOX4; NO C/O PAIN; DURING ASSESSMENT PT. ST. NOT HAVE HAD A BAD SINCE ADMISSION; ASKED IF DESIRE TO HAVE A BED BAD LATER ON THE NIGHT; ST. UNDERSTANDING; NO C/O PAIN; SBP 114; BP MEDICATION GIVEN; BED BAD GIVEN AT 2330; BED CHANGED; ABLE TO RES THROUGH THE NIGHT WITH EYES CLOSE; HR BETWEEN 70'S - 100'S; NO C/O HEADACHES; ASSESSMENT CHARGED; FOLLOWING POC; WILL PASS ON REPORT.
[2018-11-10 05:25] VITALS: BP 103/72
[2018-11-10 07:39] VITALS: BP 135/94
[2018-11-10 09:47] LABS: CALCIUM 9.5 mg/dL (8.5-10.1); CREATININE 1.5 mg/dL (0.6-1.0); POTASSIUM 5.2 mmol/L (3.5-5.1)
--- NOTE | 2018-11-10 10:50 | NUR ---
Dc plan reviewed at bedside with pt and her son. Both agreeable to dc to snf at [facility] once cleared by the attending. Possible dc later today or tomorrow pending cardiology imput. Pt is a ltc resident there as well. They have obtained skilled auth from the pt's [facility] medicare plan. Choice letter reviewed and signed by the pt. Will follow to coordinate dc back to the snf as indicated.
[2018-11-10 11:55] VITALS: BP 122/86
[2018-11-10 16:17] VITALS: BP 106/89
--- NOTE | 2018-11-10 18:52 | NUR ---
ASSUMED CARE OF PATIENT AT 0700. PATIENT IS A&O X 4.
[2018-11-10 19:51] VITALS: BP 135/73
--- NOTE | 2018-11-11 04:21 | NUR ---
ASSUMED PT CARE AT 1900. PT A/OX4, VITAL SIGNS STABLE, ASSESSMENT CHARTED. TACHY WITH HR IN LOW 100'S AT START OF SHIFT, HR IN 70'S TO 50'S FOR THE REST OF NIGHT WHEN ASLEEP. MEDS GIVEN SCHEDULED. NO COMPLAINTS OF PAIN. PT RESTED WELL THROUGH THE NIGHT. PROGRESSING WELL TOWARD PLAN OF CARE. WILL CONTINUE TO MONITOR.
[2018-11-11 04:31] VITALS: BP 154/55
[2018-11-11 07:57] VITALS: BP 146/62
[2018-11-11 09:26] VITALS: BP 146/62
[2018-11-11] MEDS ORDERED: ELIQUIS2.5 MG PO (15:20)
[2018-11-11] MEDS ORDERED: NITROGLYCERIN0.4 MG SUBLING (15:21)
[2018-11-11] MEDS ORDERED: DIGOXIN125 MCG PO (15:21)
[2018-11-11] MEDS ORDERED: METOPROLOL SUCC50 MG PO (15:22)
[2018-11-11] MEDS ORDERED: CARDIZEM CD240 MG PO (15:23)
[2018-11-11] MEDS ORDERED: K-DUR10 MEQ PO (15:24)
[2018-11-11] MEDS ORDERED: ADULT LOW DOSE81 MG PO (15:24)
--- NOTE | 2018-11-11 16:34 | NUR ---
Pt dcing to snf at [facility] this evening. They have arranged w/c van transport for 6-6:30pm. Pt updated and agreeable. Dc partner integration planner to advise pt's dtr Finn and fax the final dc orders. Care team updated. Chart copy ready to be sent with the pt. Nursing to call report.
--- NOTE | 2018-11-11 16:44 | NUR ---
FAXED DC ORDERS/SUMMARY TO [facility] SPOKE WITH ANJANA SHE RECEIVED DC ORDERS AND ARRANGED WC VAN FOR 6:00-6:30PM. SPOKE WITH PT'S DTR TALAT AND NOTIFIED HER OF DC AND TIME OF TRANSPORT. UNIT NOTIFIED AND CHART COPY PER US. RN TO CALL REPORT TO [phone].
--- NOTE | 2018-11-11 18:09 | NUR ---
ASSUMED CARE OF PATIENT AT 0700. PATIENT IS A&O X 4. PATIENT'S HEART RATE REMAINS IN THE LOW 100'S. SHE IS ANXIOUS TO GO HOME. PATIENT SAT UP IN THE BEDSIDE FOR THE ENTIRETY OF THE MORNING. PATIENT LEFT CHEST PACEMAKER SITE CONTINUES TO BE FREE OF REDNESS, WARMTH, DRAINAGE OR TENDERNESS. PATIENT'S BLOOD SUGAR IS BEING MONITORED AC&HS AND SUPPLEMENTED WITH INSULIN. PATIENT DISCHARGED BY DR. JEAN AND PICKED UP BY WHEELCHAIR TRANSPORT AT 1800. PATIENT'S IV AND TELE REMOVED. PATIENT STATES THAT SHE FEELS BETTER THAN SHE DID WHEN SHE ARRIVED.
== END 2018-11-11 18:16 | DRG 242 ==
LOC: ER 00:17 → EROBS 02:23 → 2N 02:23
PROVIDERS: Emergency Medicine; Internal Medicine; Internal Medicine Cardiovascular Disease; Nurse Practitioner; Nurse Practitioner Gerontology; ADMIT Internal Medicine
DX: I49.5 Sick sinus syndrome (principal); E43 Unspecified severe protein-calorie malnutrition; I25.110 Atherosclerotic heart disease of native coronary artery with unstable angina pectoris; I50.32 Chronic diastolic (congestive) heart failure; I48.92 Unspecified atrial flutter; I48.2 Chronic atrial fibrillation; I11.0 Hypertensive heart disease with heart failure; F03.90 Unspecified dementia, unspecified severity, without behavioral disturbance, psychotic disturbance, mood disturbance, and anxiety; E11.39 Type 2 diabetes mellitus with other diabetic ophthalmic complication; H40.89 Other specified glaucoma; H42 Glaucoma in diseases classified elsewhere; E78.5 Hyperlipidemia, unspecified; E11.65 Type 2 diabetes mellitus with hyperglycemia; G40.909 Epilepsy, unspecified, not intractable, without status epilepticus; E88.09 Other disorders of plasma-protein metabolism, not elsewhere classified; K21.9 Gastro-esophageal reflux disease without esophagitis; M19.012 Primary osteoarthritis, left shoulder; R25.1 Tremor, unspecified; D64.9 Anemia, unspecified; K58.1 Irritable bowel syndrome with constipation; Z96.652 Presence of left artificial knee joint; I25.2 Old myocardial infarction; Z98.42 Cataract extraction status, left eye; Z98.41 Cataract extraction status, right eye; Z90.710 Acquired absence of both cervix and uterus; Z79.01 Long term (current) use of anticoagulants; Z79.899 Other long term (current) drug therapy; Z88.0 Allergy status to penicillin; Z91.041 Radiographic dye allergy status; Z82.3 Family history of stroke; Z83.3 Family history of diabetes mellitus; Z80.0 Family history of malignant neoplasm of digestive organs; Z82.49 Family history of ischemic heart disease and other diseases of the circulatory system
CPT/HCPCS: 10081

== ENCOUNTER 2019-03-08 20:09 | Inpatient (IN) | payer OTHER ==
[~2019-03-08] VITALS: Ht 167.6 cm; Wt 68.5 kg
--- NOTE | ~2019-03-08 | D ---
[place] [address] [place] [address] DISCHARGE SUMMARY Name: CINTHIA PATTON Room #: 352-P [facility] IN M.R.#: [id number] Admission: 03/08/19 Attend Phys: Jose Alberto Alfredo MD Discharge: 03/12/19 Date of : 31 Report #: [id number] THIS REPORT FOR: //name// CC: Jose Alberto Alfredo DATE OF SERVICE: 03/12/2019 DISCHARGE DIAGNOSES: 1. Cardiac , status-post failed resuscitation attempts. 2. Asystole. 3. Pulseless electrical activity triggered by the pacemaker then followed. 4. Acute myocardial infarction with progressively elevated troponin. 5. Acute diverticulitis -- responding to treatment, without abdominal pain. 6. Chronic atrial fibrillation. 7. Sick sinus syndrome with a pacemaker having been placed. 8. Type 2 diabetes. 9. Hypertension. 10. Dementia. 11. Acute kidney injury -- responded to treatment with baseline renal function reestablished. TERMINAL EVENT: Please see the nursing notes. SUMMARY OF HISTORY AND PHYSICAL: The heart monitor alarmed with asystole. The staff responded and found the patient unresponsive, without a pulse, and with white foamy vomitus. The resuscitation event efforts were started and directed by Dr. Edwards from the Emergency Department using standard protocol interventions. These were not successful, and resuscitations were stopped. For other details regarding the hospital stay, please see the progress notes. By: 50 2102 Salvatore Miles MD /karan
[~2019-03-08 20:09] MED LIST changes: +ADULT LOW DOSE81 MG PO; +DIGOXIN125 MCG PO; +ELIQUIS2.5 MG PO; +K-DUR10 MEQ PO; +LANTUS SUBQ; +NITROGLYCERIN0.4 MG SUBLING; +SIMVASTATIN10 MG PO; +ZANTAC 150MG T150 MG PO
[2019-03-08 20:11] VITALS: BP 121/47
[2019-03-08 20:39] LABS: HEMOGLOBIN 13.7 gm/dL (12.0-15.0); MCH 26.8 pg (26.0-34.0); MCV 83.8 fL (80.0-100.0); PLATELET COUNT 245 thou/uL (150-400); RBC 5.13 mil/uL (4.20-5.00); RDW 14.8 % (10.5-14.5); WBC 23.3 thou/uL (4.0-11.0)
[2019-03-08 20:55] LABS: ALBUMIN 2.8 g/dL (3.4-5.0); ANION GAP 10 mmol/L (7-16); BUN 29 mg/dL (7-18); CALCIUM 9.1 mg/dL (8.5-10.1); CHLORIDE 103 mmol/L (98-107); CO2 29 mmol/L (21-32); CREATININE 1.6 mg/dL (0.6-1.0); GLUCOSE 88 mg/dL (74-106); SGOT 25 U/L (15-37); SGPT 20 U/L (30-65); SODIUM 142 mmol/L (136-145); TOTAL BILIRUBIN 0.5 mg/dL (<0.1-1.0); TOTAL PROTEIN < 2.0 g/dL (6.4-8.2)
[2019-03-08 20:56] LABS: URINE BLOOD NEGATIVE (Negative); URINE CLARITY SL CLOUDY; URINE COLOR YELLOW; URINE GLUCOSE-RANDOM* 1+ (Negative); URINE KETONES NEGATIVE (Negative); URINE LEUKOCYTES-REFLEX NEGATIVE (Negative); URINE NITRITE-REFLEX NEGATIVE (Negative); URINE PROTEIN (DIPSTICK) NEGATIVE (Negative); URINE SPECIFIC GRAVITY >= 1.030 (1.005-1.035)
[2019-03-08 20:57] LABS: BACTERIA-REFLEX 1-9 Few /HPF (None Seen); CASTS None Seen /LPF (None Seen); ICTOTEST (BILI CONFIRMATORY) Negative (Negative); URINE BILIRUBIN NEGATIVE (Negative); URINE RBC None Seen /HPF (0-2); URINE WBC-REFLEX None Seen /HPF (0-5)
[2019-03-08 20:58] LABS: CRYSTALS None Seen /LPF (None Seen)
[2019-03-08 20:59] LABS: MAGNESIUM 1.5 mg/dL (1.8-2.4)
[2019-03-08 20:59] LABS: SQUAMOUS 0-3 Few /LPF (0-3)
[2019-03-08 21:00] LABS: TROPONIN-I 1.15 ng/mL (<0.06)
--- NOTE | 2019-03-08 22:49 | NUR ---
PHARMACY CONTACTED RE: MISSING ANTIBIOTICS
[2019-03-08] MEDS ORDERED: ARICEPT 5 MG TAB5 MG PO (22:52)
[2019-03-08] MEDS ORDERED: HYDRALAZINE 2525 MG PO (22:58)
[2019-03-08] MEDS ORDERED: ONDANSETRON HCL4 M2 PO (22:58)
[2019-03-08] MEDS ORDERED: OMEPRAZOLE20 M2 PO (22:59)
[2019-03-08] MEDS ORDERED: METFORMIN HCL500 MG PO (23:01)
[2019-03-08 23:04] VITALS: BP 127/66
[2019-03-09] VITALS (7 sets, daily range): BP systolic 119–162; BP diastolic 47–76
[2019-03-09 02:48] LABS: HEMOGLOBIN 12.3 gm/dL (12.0-15.0); MCH 26.5 pg (26.0-34.0); MCHC 31.5 g/dL (28.0-37.0); MCV 84.3 fL (80.0-100.0); RBC 4.62 mil/uL (4.20-5.00); RDW 14.9 % (10.5-14.5); WBC 18.2 thou/uL (4.0-11.0)
[2019-03-09 03:00] LABS: ALBUMIN 2.2 g/dL (3.4-5.0); CREATININE 1.5 mg/dL (0.6-1.0); POTASSIUM 3.7 mmol/L (3.5-5.1); TOTAL BILIRUBIN 0.4 mg/dL (<0.1-1.0); TOTAL PROTEIN 6.1 g/dL (6.4-8.2)
--- NOTE | 2019-03-09 05:17 | NUR ---
PT ARRIVED TO UNIT JUST AFTER MIDNIGHT, ADMISSION AND ASSESSMENT COMPLETED; PT UNABLE TO SIGN CONSENTS, WILL ASK DAY RN TO HAVE SON/DPOA SIGN IN THE MORNING WHEN HE COMES IN. PT DROWSY BUT AROUSEABLE, ABLE TO ANSWER SOME QUESTIONS BUT FORGETFUL AND POOR HISTORIAN. REPORTED MILD NAUSEA AND SOB BUT DENIES BOTH LATER IN THE SHIFT; ON 2L O2 NC FOR DESATTING WHILE ASLEEP. DENIES PAIN. IV FLUIDS STARTED AFTER ABX AND MAG REPLACEMENT FINISHED. REDRAW OF TROPONIN SHOWED INCREASE IN LEVEL; CALLED CRITICAL LAB TO DR. JEAN WELL CONSULT TO CARDIOLOGY; PT TO HAVE REPEAT EKG AND AN ECHO IN AM. PT DENIES ANY CHEST PAIN OR SOB; VS STABLE. PT HAS ALTERNATED BETWEEN ATRIAL FLUTTER WITH V-PACING AND A SR WITH 2ND DEGREE [place], HR FROM 60 TO 90 WHILE ON THE FLOOR. STILL NEED A STOOL SAMPLE FOR C.DIFF RULE OUT, OCCULT BLOOD, AND PARASITES. NO OTHER CONCERNS, WILL CONTINUE TO MONITOR.
--- NOTE | 2019-03-09 09:40 | 2DMMODE ---
[facility] [address] [place] [address] 2 D/M-MODE ECHOCARDIOGRAM Name: POOJACINTHIA Room #: 352-P ADM IN ..#: [id number] Admission: 03/08/19 Attend Phys: Jose Alberto Alfredo MD Discharge: Date of : 33 Report #: [id number] THIS REPORT FOR: //name// APPROVED REPORT Study performed: 03/09/2019 08:06:56 EXAM: Comprehensive 2D, Doppler, and color-flow Echocardiogram Patient Location: In-Patient Room #: 352 Status: routine BSA: 1.76 HR: 62 bpm BP: 138/57 mmHg Rhythm: Atrial Flutter Other Information Study Quality: Good Indications Diabetes Atrial Fibrillation Pacemaker Elevated Troponin Hypertension/HDD 2D Dimensions RVDd: 40.46 mm IVSd: 16.94 (7-11mm) LVOT Diam: 19.43 (18-24mm) LVDd: 34.34 mm PWd: 15.63 (7-11mm) Ascending Ao: 35.47 (22-36mm) LVDs: 15.70 (25-40mm) Aortic Root: 36.47 mm IVC: 24.00 mm Volumes Left Atrial Volume (Systole) Single Plane 4CH: 100.77 mL Single Plane 2CH: 67.55 mL LA ESV Index: 52.00 mL/m2 Aortic Valve AoV Peak Wilmer.: 1.48 m/s AO Peak Gr.: 8.77 mmHg LVOT Max P.29 mmHg LVOT Max V: 0.91 m/s CHRISSY Vmax: 1.81 cm2 [facility] [address] [place] [address] 2 D/M-MODE ECHOCARDIOGRAM Name: CINTHIA PATTON Room #: 352-P [facility]#: [id number] Admission: 03/08/19 Attend Phys: Jose Alberto Alfredo MD Discharge: Date of : 33 Report #: [id number] Pulmonary Valve PV Peak Wilmer.: 1.01 m/s PV Peak Gr.: 4.07 mmHg Tricuspid Valve TR Peak Wilmer.: 3.09 m/s RAP Estimate: 10.00 mmHg TR Peak Gr.: 38.39 mmHg PA Pressure: 48.00 mmHg Left Ventricle The left ventricle is normal size. Moderate concentric left ventricular hypertrophy. Left ventricular systolic function is normal. LVEF is 65%. This study is not technically sufficient to allow evaluation of the LV diastolic function due to atrial fibrillation. Right Ventricle The right ventricle is normal size. Atria Left atrium is severely dilated. Right atrium is dilated. Aortic Valve Aortic valve is thickened but has adequate excursion. Mild aortic regurgitation. There is no aortic valvular stenosis. Mitral Valve The mitral valve is normal in structure. Mild mitral regurgitation. No evidence of mitral valve stenosis. Tricuspid Valve The tricuspid valve is normal in structure. Mild to moderate tricuspid regurgitation. Estimated PAP is 48mmHg. Pulmonic Valve The pulmonary valve is normal in structure. Trace to mild pulmonic regurgitation. Great Vessels Aortic root is at the upper limits of normal. The ascending aorta is normal in size. IVC is dilated and collapses >50% with inspiration. Pericardium There is no pericardial effusion. <Conclusion> [facility] [address] [place] [address] 2 D/M-MODE ECHOCARDIOGRAM Name: CINTHIA PATTON Room #: 352-P [facility] IN ..#: [id number] Admission: 03/08/19 Attend Phys: Jose Alberto Alfredo MD Discharge: Date of : 33 Report #: [id number] The left ventricle is normal size. Moderate concentric left ventricular hypertrophy. Left ventricular systolic function is normal. The right ventricle is normal size. Left atrium is severely dilated. Right atrium is dilated. Mild aortic regurgitation. Mild mitral regurgitation. Mild to moderate tricuspid regurgitation. Estimated PAP is 48mmHg. <ELECTRONICALLY SIGNED> By: Luis Engle MD 03/09/1939 8 8 Luis Engle MD /INF
--- NOTE | 2019-03-09 12:49 | NUR ---
ASSESSMENT: CM REVIEWED CHART AND MET WITH PATIENT AT THE BEDSIDE. PT IS ADMITTED FOR [facility] LTC DUE TO DIVERTICULITIS/INCREASED TROPONIN. PT USES A WHEELCHAIR OVER AT [facility]. CM SPOKE WITH PATIENTS RENETTA MITCHELLGIO SUSAN AND PLANS ARE FOR PATIENT TO RETURN THE [facility] ONCE MEDICALLY STABLE. CM SPOKE WITH ANJANA IN ADMISSION [facility] TO UPDATE WELL FAXED UPDATED CLINICAL. CM WILL CONTINUE TO FOLLOW TO ASSIST NEEDED.
--- NOTE | 2019-03-09 18:28 | NUR ---
PATIENT CONT TO REST IN BED AT THIS TIME. RESPIRATIONS ARE NON LABORED. SHE HAS BEEN QUITE DROWSY MOST OF THE DAY. CONT ON IV FLUID REPLACEMENT. NOTED TO HAVE BSCAN OF 450MLS AND KIDD CATH PLACED. TURNED Q2HRS. WILL CONT WITH PLAN OF CARE.
[2019-03-10 03:35] VITALS: BP 133/61
--- NOTE | 2019-03-10 05:21 | NUR ---
ASSUMED CARE AT 1900. PT SOMNOLENT, AROUSEABLE BUT VERY LETHARGIC; SPEAKS VERY LITTLE WHEN STAFF TALKING WITH HER. DENIES SOB OR PAIN; REPORTED FEELING SLIGHTLY NAUSEATED EARLY IN SHIFT BUT DENIES THE REST OF THE NIGHT. KIDD DRAINING DARK, ORANGE/YELLOW URINE. HAS BEEN AFIB/FLUTTER INTERSPERSED WITH V-PACING, HR 60-65 MOST OF THE NIGHT. NO OTHER CONCERNS, WILL CONTINUE TO MONITOR.
[2019-03-10 07:55] VITALS: BP 147/65
[2019-03-10 11:37] VITALS: BP 156/72
--- NOTE | 2019-03-10 12:19 | NUR ---
ON-GOING ASSESSMENT: CM REVIEWED CHART. PT IS COMPLAINING OF N/V AND ABDOMINAL PAIN. PT IS NOT STABLE AT THIS TIME FOR DISCHARGE. PLANS ARE FOR PATIENT TO GO BACK TO [facility] ONCE MEDICALLY STABLE. IF PATIENT IS ABLE TO GO BACK TO LTC SHE CAN DISCHARGE BACK THERE OVER THER WEEKEND. IF PATIENT IS STABLE FOR D/C BACK TO LTC CONTACT LUIS ENRIQUE IN ADMISSIONS ON HIS CELL AT [phone] AND HE WILL ARRANGE TRANSPORTATION. CALL [phone] FOR REPORT AND ASK THEM THE BEST # TO FAX D/C ORDERS AND SUMMARY TOO. SEND PT WITH CHART COPY AND NOTIFY FAMILY. IF PATIENT IS NEEDING TO GO BACK SNF AT [facility] IF WE WILL NEED INSURANCE AUTH PRIOR TO DISCHARGE BUT NOT IF SHE IS ABLE TO GO BACK [facility]. CM WILL CONTINUE TO FOLLOW TO ASSIST NEEDED.
[2019-03-10 15:02] VITALS: BP 142/66
--- NOTE | 2019-03-10 15:06 | EKG ---
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
--- NOTE | 2019-03-10 15:08 | EKG ---
[address] [address] ELECTROCARDIOGRAM REPORT Name: CINTHIA PATTON Room #: 352-P ADM IN M.R.#: [id number] Admission: 03/08/19 Attend Phys: Jose Alberto Alfredo MD Discharge: Date of : 33 Report #: [id number] THIS REPORT FOR: //name// [facility] Test Date: 2019-03-09 Test Time: 09:42:06 Pat Name: CINTHIA PATTON Department: Room: [facility] Gender: F Last Model Maker: RAIZA : 1935 Requested By: Jose Alberto Alfredo Order Number: [id number] MD: Mahamed Benitez Measurements Intervals [place] Rate: 68 P: [place]: QRS: -42 QRSD: 88 T: 171 QT: 355 QTc: 378 Interpretive Statements Afib/flut and V-paced complexes No further analysis attempted due to paced rhythm Compared to ECG 11/01/2018 09:37:52 Atrial flutter no longer present Myocardial infarct finding no longer present Poor R-wave progression no longer present Electronically Signed On 03-10-2019 15:07:56 CDT by Mahamed Benitez [email or web address] <ELECTRONICALLY SIGNED> By: Mahamed Benitez MD 03/10/19 1507 0942 0942 Mahamed Benitez MD /EPI
--- NOTE | 2019-03-10 15:12 | EKG ---
[address] [address] ELECTROCARDIOGRAM REPORT Name: CINTHIA PATTON Room #: 352-P ADM IN M.R.#: [id number] Admission: 03/08/19 Attend Phys: Jose Alberto Alfredo MD Discharge: Date of : 33 Report #: [id number] THIS REPORT FOR: //name// [facility] Test Date: 2019-03-10 Test Time: 09:11:26 Pat Name: CINTHIA PATTON Department: Room: 352 Gender: F Test Boring Crew Chief: RAIZA : 1935 Requested By: Lauren Haile Order Number: [id number] MD: Mahamed Benitez Measurements Intervals [place] Rate: 60 P: AR: QRS: -57 QRSD: 114 T: QT: 488 QTc: 488 Interpretive Statements Junctional rhythm Borderline IVCD with LAD Inferior infarct, old Probable anteroseptal infarct, recent Compared to ECG 11/01/2018 09:37:52 Junctional rhythm now present Atrial flutter no longer present Poor R-wave progression no longer present Myocardial infarct finding still present Electronically Signed On 03-10-2019 15:12:19 CDT by Mahamed Benitez [email or web address] <ELECTRONICALLY SIGNED> By: Mahamed Benitez MD 03/10/19 1512 0 0 Mahamed Benitez MD /EPI
--- NOTE | 2019-03-10 17:41 | NUR ---
PATIENT HAS RESTED IN ROOM THROUGH THE DAY. COMPLAINTS N/V IS MORE SEVERE TODAY THAN YESTERDAY. GI CONSULTED. HAD ONE EPISODE OF BOWEL MOVEMENT TODAY. SHE IS ON CLEAR DIET AND HAS DRANK SPARINGLY. HEAD OF BED ELEVATED. WILL CONT WITH PLAN OF CARE.
[2019-03-10 20:15] VITALS: BP 127/69
--- NOTE | 2019-03-10 23:00 | NUR ---
ASSUMED PATIENT CARE. PATIENT AWAKE ALERT AND ORIENT. O2 AT 1L/NC. DENIES NAUSEA. INCONTINENT OF BOWEL AND BLADDER, STOOL LOOSE. MULTIPLE SMALL AREAS IN COCCYX AREA STARTING TO BREAKDOWN. BARRIER CREAM APPLIED. EXTERNAL FEMALE CATHETER CHANGED. TURNED TO SIDE. SCD'S IN PLACE.
[2019-03-11] VITALS (7 sets, daily range): BP systolic 137–178; BP diastolic 53–68
--- NOTE | 2019-03-11 04:02 | NUR ---
Patient working towards outcome goals. IVfluids infusing. Incontinent of bladder and bowels. Turned to sides every 2 hours. Rhythm stable. SBP 150-170 on scheduled Hydralazine. High fall risks, fall precautions in place.
[2019-03-11 05:04] LABS: HEMATOCRIT 38.6 % (37.0-47.0); HEMOGLOBIN 12.1 gm/dL (12.0-15.0); MCH 26.6 pg (26.0-34.0); MCHC 31.3 g/dL (28.0-37.0); PLATELET COUNT 223 thou/uL (150-400); RBC 4.54 mil/uL (4.20-5.00); RDW 15.1 % (10.5-14.5); WBC 12.7 thou/uL (4.0-11.0)
[2019-03-11 05:38] LABS: ALBUMIN 2.4 g/dL (3.4-5.0); CALCIUM 8.5 mg/dL (8.5-10.1); CREATININE 1.2 mg/dL (0.6-1.0); TOTAL BILIRUBIN 0.3 mg/dL (<0.1-1.0); TOTAL PROTEIN 5.6 g/dL (6.4-8.2)
--- NOTE | 2019-03-11 05:52 | NUR ---
Elevated troponins, providers aware. Apixaban on hold for possible heart cath on Wednesday. No nausea or vomiting. Mild abdominal tenderness.
[2019-03-11 05:57] LABS: ABSOLUTE NEUTROPHILS 8.4 thou/uL (1.4-8.2); ATYPICAL LYMPHS 1 %; NUCLEATED RBCS 2 /100WBC
[2019-03-11 05:58] LABS: LARGE PLATELETS RARE
--- NOTE | 2019-03-11 18:10 | NUR ---
pt is A&OX2 ( person and place), pt can follow commands, pt starts eat clear liquid diet with assist, pt is continuing iv abx and iv fluid, pt is on o2 2L/MIN/NC, PT'S VS are stable, pt denies chest pain and n/v by this time.pt has slowly meeting care plan goals.
--- NOTE | 2019-03-12 02:30 | NUR ---
Heart monitor alarmed asystole. Pacer spikes with capture observed. Rounded on patient found unresponsive, no pulse with white foamy vomitus. CODE BLUE called. Dr Edwards from ED discussed event with Dr Miles and patients children, daughter Finn and DPOA son Oscar over the phone. Patient pronounced at 0256. [place] [facility] notified. Post mortem care. Awaiting for family to visit.
--- NOTE | 2019-03-12 04:23 | NUR ---
Left notification to Carlos HOLLIDAY, Kadeem Booker and Dr Jose Enrique ROBERTSON thru answering service.
--- NOTE | 2019-03-12 04:29 | NUR ---
Multiple family members at bedside visiting.
--- NOTE | 2019-03-12 06:43 | NUR ---
Eulogio dodson per security.
--- NOTE | 2019-03-13 09:33 | HC ---
[facility] [place] [address] CONSULTATION Name: CINTHIA PATTON Room #: 352-P [facility] IN M.R.#: [id number] Admission: 03/08/19 Attend Phys: Jose Alberto Alfredo MD Discharge: 03/12/19 Date of : 31 Report #: [id number] THIS REPORT FOR: //name// CC: Jose Alberto Alfredo DATE OF SERVICE: 03/10/2019 INFECTIOUS DISEASE CONSULTATION REASON FOR CONSULTATION: Evaluate diverticulitis and persistent leukocytosis. HISTORY OF PRESENT ILLNESS: The patient is an 83-year-old long term resident who has underlying dementia along with diabetes, atrial fibrillation, coronary artery disease and congestive heart failure, presents on 03/08/2019 with abdominal pain and nausea, vomiting and loose stools. The abdominal pain has persisted. She remains nauseated and having some intermittent emesis. She was diagnosed with sigmoid diverticulitis by CAT scan. SHE IS ALLERGIC TO PENICILLIN and has been on ciprofloxacin and metronidazole. The patient was unable to give much more detail other than that she is currently uncomfortable and nauseated. ALLERGIES: IODINE, MORPHINE, PENICILLIN. MEDICATIONS: As noted on her MAR including ciprofloxacin and metronidazole. PAST MEDICAL HISTORY: Diabetes, coronary artery disease, hypertension, chronic kidney disease, cataract surgery, hysterectomy, and total knee arthroplasty. FAMILY HISTORY: Noncontributory. SOCIAL HISTORY: Nonsmoker, no significant alcohol intake. REVIEW OF SYSTEMS: Denies any cardiopulmonary issues. No report of any dysuria, back or flank pain. She has had no rashes. Full 10-point review was negative other than what has been described above. PHYSICAL EXAMINATION: VITAL SIGNS: Afebrile and hemodynamically stable. GENERAL: She is alert and cooperative and pleasant, in no acute distress. She had a fine tremor, right greater than left upper extremities. SKIN: Without rash or decubitus. No palpable adenopathy. EYES: Without scleral icterus. MOUTH: Without mucositis. LUNGS: Clear. HEART: Regular, without murmur, gallop, or rub. ABDOMEN: Soft, positive bowel sounds. There is no appreciable mass or [facility] [address] [place] [address] CONSULTATION Name: CINTHIA PATTON Room #: 352-P [facility] IN M.R.#: [id number] Admission: 03/08/19 Attend Phys: Jose Alberto Alfredo MD Discharge: 03/12/19 Date of : 31 Report #: [id number] hepatosplenomegaly. She was tender on the left lower quadrant. There was no guarding or rebound. EXTREMITIES: With no clubbing, cyanosis, or edema. NEUROLOGIC: Cranial nerves were intact. She was able to move her upper and lower extremities. PSYCHIATRIC: Appropriate mood without evidence of any anxiety or depression. LABORATORY STUDIES: Chest x-ray with mild cardiomegaly. CT scan of the abdomen and pelvis with sigmoid diverticulitis change without abscess. Bilateral nephrolithiasis without obstruction, possible gallbladder sludge. Abdominal x-ray shows nonobstructive bowel gas pattern. Stool cultures were negative. Blood cultures negative today. Sodium 142, potassium 3.7, bicarbonate 28, creatinine 1.5. Liver function tests normal. Albumin at 2.2. Lactate 1.2, hemoglobin 12.3, WBC 18.2, platelet count 195,000, 86% segs, 6% lymphs. C. difficile, PCR was negative. Urinalysis unremarkable. IMPRESSION: An 83-year-old long term resident with acute diverticulitis associated with persistent nausea and loose stools. She has persistent leukocytosis and acute kidney injury. Underlying dementia, diabetes, coronary artery disease, congestive heart failure, compensated. RECOMMENDATION: She is ALLERGIC TO PENICILLIN, suspect nausea may be more related to her medications. We will switch from ciprofloxacin and metronidazole to meropenem. We will follow serial laboratory studies including CBC and chemistry. Continue fluid resuscitation and support. <ELECTRONICALLY SIGNED> By: Ferny Stringer MD 03/13/19 [id number] [id number] Ferny Stringer MD /nt
== END 2019-03-12 02:56 | DRG 871 ==
LOC: ER 20:09 → 3W 23:16 → EROBS 23:16 → 3W 23:42
PROVIDERS: Emergency Medicine; Specialist; ADMIT Internal Medicine
PROC: 4B02XSZ Measurement of Cardiac Pacemaker, External Approach (ICD-10-PCS; 2019-03-08)
PROC: 5A12012 Performance of Cardiac Output, Single, Manual (ICD-10-PCS; principal; 2019-03-12)
DX: A41.9 Sepsis, unspecified organism (principal); I21.9 Acute myocardial infarction, unspecified; N17.9 Acute kidney failure, unspecified; I48.92 Unspecified atrial flutter; K57.32 Diverticulitis of large intestine without perforation or abscess without bleeding; I13.0 Hypertensive heart and chronic kidney disease with heart failure and stage 1 through stage 4 chronic kidney disease, or unspecified chronic kidney disease; I25.10 Atherosclerotic heart disease of native coronary artery without angina pectoris; E78.5 Hyperlipidemia, unspecified; I46.9 Cardiac arrest, cause unspecified; I49.5 Sick sinus syndrome; F03.90 Unspecified dementia, unspecified severity, without behavioral disturbance, psychotic disturbance, mood disturbance, and anxiety; I48.2 Chronic atrial fibrillation; E11.36 Type 2 diabetes mellitus with diabetic cataract; N20.0 Calculus of kidney; Z96.652 Presence of left artificial knee joint; K59.09 Other constipation; K21.9 Gastro-esophageal reflux disease without esophagitis; E83.42 Hypomagnesemia; E11.22 Type 2 diabetes mellitus with diabetic chronic kidney disease; N18.9 Chronic kidney disease, unspecified; I50.9 Heart failure, unspecified; Z88.5 Allergy status to narcotic agent; Z88.0 Allergy status to penicillin; Z91.041 Radiographic dye allergy status; Z95.0 Presence of cardiac pacemaker; Z79.4 Long term (current) use of insulin; Z79.899 Other long term (current) drug therapy; Z90.710 Acquired absence of both cervix and uterus; I25.2 Old myocardial infarction; Z82.3 Family history of stroke; Z83.3 Family history of diabetes mellitus; Z80.0 Family history of malignant neoplasm of digestive organs; Z82.49 Family history of ischemic heart disease and other diseases of the circulatory system
CPT/HCPCS: 10879